=== PATIENT | male | born 1950 | race Caucasian/White ===

== ENCOUNTER 2020-12-31 09:08 | Outpatient (CLI) | payer MEDICARE, SELFPAY ==
--- NOTE | 2021-01-23 10:24 | WPDHOMESLEEP ---
Sleep Study - Home Unattended Date of Study: 12/31/20 Ordering Provider: Iglesia Gooden MD Interpreting Provider: Sabina Bautista MD Home Sleep Study Type: Apnea Link Air Height: 1.68 m Weight: 99.79 kg Body Mass Index: 35.5 Neck Circumference (inches): 16 [place]: 2 Reason for Sleep Study Hypersomnia Sleep History Ambrosio Watson is a 70-year-old man who has difficulty falling asleep most nights. He thinks about things frequently during the night. This has been going on for several years. He does not awaken from sleep feeling short of breath. He rarely awakens at night with heartburn belching or coughing. He rarely snores. He does not snore loudly enough that others complain about it. He frequently has trouble sleep with a cold. He does not wake up gasping for breath at night. He does not have breathing problems at night observed by others. He rarely sweats excessively night. He does not notice his heart pounding or beating irregularly night. He frequently falls asleep during the day, takes 1 or 2 naps. He does not fall asleep involuntarily or while driving the car. He does not have loss of muscle tone was strong emotion. He does not have daytime difficulties due to excessive sleepiness. He does not feel paralyzed on waking or falling asleep. He rarely has vivid dreamlike scenes upon awakening or falling asleep. He does not feel afraid to go to sleep. He rarely has nightmares, rarely remembers his dreams. He constantly has racing thoughts. He rarely feels sad or depressed. He frequently has anxiety. He does not have muscular tension or notices parts of his body jerking. He frequently kicks at night. He does not have crawling and aching feelings in his legs. He occasionally has leg cramps at night. He does not have morning jaw pain. He constantly is bothered by pain during the day and occasionally is awakened by pain at night. He wakes up with cramps and he frequently wakes up with neck and spine pain. He has bowel disturbances and memory problems. He has insomnia is. He occasionally uses marijuana. Normal bedtime is 2:00 a.m. taking a while possibly 1 or 2 hours to fall asleep. He typically wakes twice at night to urinate and is able to return to sleep quickly. He wakes the morning at 8:30 a.m.. His weekend schedule is the same. He estimates getting 4-5 hours of sleep overnight. He does take naps during the day. A short nap may be refreshing. Most of the time he feels good in the morning. He feels better in the evening compared to the morning. Habits: No tobacco. He does use marijuana. Caffeine 2 or 3 sodas per week. No alcohol. [facility] Past Medical History Medical History Bilateral carpal tunnel syndrome BMI 39.0-39.9,adult Chronic kidney disease (CKD) stage G3a/A1, moderately decreased glomerular filtration rate (GFR) between 45-59 mL/min/1.73 square meter and albuminuria creatinine ratio less than 30 mg/g Chronic right shoulder pain Hypersomnia Hypothyroidism, unspecified (10/15/20) TSH 5.27 on 10/15/2020 Nocturia Personal history of tobacco use 2 packs daily for 30 years with patient quitting in 1989 Ulnar neuropathy at elbow of right upper extremity Umbilical hernia without obstruction and without gangrene Family History Family History Grandparent Cerebrovascular accident, Onset Age: 81 Family history of malignant neoplasm of bone, Onset Age: 70 Mother Carcinoma of colon, Onset Age: 69 Father Family history of lung cancer, Onset Age: 9 Family history of primary malignant neoplasm of liver, Onset Age: 9 Sibling Family history of malignant neoplasm of brain, Onset Age: 54 Family history of malignant neoplasm of breast in first degree relative, Onset Age: 54 Social History Social History (Updated 01/23/21 @ 10:27 by Emili
[2021-01-23 10:31] VITALS: BMI 35.5
== END 2021-01-01 09:54 | disposition home or self-care (01) ==
LOC: ANHCSM 09:11
PROVIDERS: PCP Family Medicine; Visit Provider Family Medicine
DX: G47.33 Obstructive sleep apnea (adult) (pediatric) (principal); G47.10 Hypersomnia, unspecified; R06.3 Periodic breathing; I10 Essential (primary) hypertension
CPT/HCPCS: 95806

== ENCOUNTER → 2021-01-30 16:43 | Outpatient (CLI) | payer MEDICARE, SELFPAY ==
--- NOTE | ~2021-01-30 | XR_ITS ---
EXAMINATION: XR foot LT min 3V EXAM DATE: 01/30/2021 17:11 INDICATION: Pain in left toe(s)/no trauma/pain over a year worsening. TECHNIQUE: Left foot dorsoplantar, lateral and oblique projections obtained and reviewed. There is n o prior study for comparison. FINDINGS: Left metatarsal bones unremarkable. There are no bony erosions identified. The joint spa evelio are uniform. There are no acute fractures or dislocations identified. There is no subcutaneous g as. The soft tissue is unremarkable. There are no radiopaque foreign bodies. IMPRESSION: No acute osseous findings. Reviewed, dictated and finalized at location G. IMPRESSION: No acute osseous findings.
--- NOTE | ~2021-01-30 | XR_ITS ---
EXAMINATION: XR knee LT min 4V EXAM DATE: 01/30/2021 17:09 INDICATION: Pain in left knee/pain unspecified area/no trauma. TECHNIQUE: Left knee lateral, frontal AP, frontal PA tunnel, sunrise projections. There is no prior study for comparison. FINDINGS: No evidence osteochondral defect or joint body in the left knee joint. There are no acute fractures or dislocations identified. There is no subcutaneous gas. There may be some nonspecific anterior soft tissue swelling, anterior to the patellar tendon. Prepatellar bursitis can have this ap pearance. There are no radiopaque foreign bodies. No bony productive changes or joint effusion. IMPRESSION: Left anterior swelling, possible bursitis. Reviewed, dictated and finalized at location G.
== END ==
PROVIDERS: PCP Family Medicine; Visit Provider Family Medicine
DX: M25.572 Pain in left ankle and joints of left foot (principal); M25.562 Pain in left knee
CPT/HCPCS: 73564; 73630

== ENCOUNTER 2021-02-28 00:28 | Day surgery (SDC) | payer MEDICARE, SELFPAY ==
[2021-02-14 15:36] VITALS: BMI 35.2
[2021-02-28 10:11] VITALS: BP 150/64; PULSE 73; RESP 18; TEMP 35.8; O2SAT 99; BMI 34.6
[2021-02-28] MEDS: LACTATED RINGERS 1,000 ML 150 ML IV CONT (10:31)
[2021-02-28 10:32] LABS: Glucose Point of Care 180 mg/dl (65-105)
--- NOTE | 2021-02-28 10:48 | PM.HPGS ---
History of Present Illness History of Present Illness Consent: Risks, benefits, and alternatives have been discussed and questions answered. Patient agrees to proceed with procedure. Chief complaint: hx of colon polyps Narrative: Ambrosio Bhagat is a 70 year old male here for colon cancer screening. He has had polyps removed in the past Review of Systems Review of Systems: All systems reviewed & are unremarkable except as noted in HPI and below PMFSH Past Medical History Medical History Bilateral carpal tunnel syndrome BMI 34.0-34.9,adult BMI 39.0-39.9,adult Chronic kidney disease (CKD) stage G3a/A1, moderately decreased glomerular filtration rate (GFR) between 45-59 mL/min/1.73 square meter and albuminuria creatinine ratio less than 30 mg/g Chronic pain of left knee Chronic right shoulder pain Chronic toe pain, left foot Hemoglobin A1c greater than 8.0 percent 10/15/20 = 8.5 Hypersomnia Hypothyroidism, unspecified (10/15/20) TSH 5.27 on 10/15/2020 Nocturia Personal history of tobacco use 2 packs daily for 30 years with patient quitting in 1989 Ulnar neuropathy at elbow of right upper extremity Umbilical hernia without obstruction and without gangrene Family History Family History Grandparent Cerebrovascular accident, Onset Age: 81 Family history of malignant neoplasm of bone, Onset Age: 70 Mother Carcinoma of colon, Onset Age: 69 Father Family history of lung cancer, Onset Age: 9 Family history of primary malignant neoplasm of liver, Onset Age: 9 Sibling Family history of malignant neoplasm of brain, Onset Age: 54 Family history of malignant neoplasm of breast in first degree relative, Onset Age: 54 Social History Social History Smoking packs per day: 2 Smoking cigarettes per day: 40.0 Years smoked: 20 Smoking pack-years: 40.00 Smoking status: Former smoker Tobacco type: cigarettes Alcohol intake: never Substance use: current Substance use type: marijuana Other substance usage details: SMOKES SMALL AMOUNT DAILY Living arrangements: with family Gender identity (if verbalized by the patient): Male Spiritual care concerns: No Meds Home Medications and Allergies Home Medications Medication Instructions Recorded Confirmed Type amlodipine 10 mg tablet 10 mg PO DAILY #90 tablet 10/30/20 02/28/21 Rx atorvastatin 40 mg tablet 40 mg PO DAILY #90 tablet 10/30/20 02/28/21 Rx blood sugar diagnostic #400 ea 10/30/20 02/28/21 Rx carvedilol 25 mg tablet 25 mg PO Q12H #180 tablet 10/30/20 02/28/21 Rx empagliflozin 25 mg tablet 25 mg PO DAILY #90 tablet 10/30/20 02/28/21 Rx finasteride 5 mg tablet 5 mg PO DAILY #90 tablet 10/30/20 02/28/21 Rx hydrochlorothiazide 12.5 mg tablet 12.5 mg PO DAILY #90 tablet 10/30/20 02/28/21 Rx insulin syringe-needle U-100 1 mL #100 ea 10/30/20 02/28/21 Rx 30 gauge x 1/2 lancets 33 gauge #400 ea 10/30/20 02/28/21 Rx lisinopril 40 mg tablet 40 mg PO BID #180 tablet 10/30/20 02/28/21 Rx metformin 500 mg tablet,extended 2,000 mg PO DAILY #360 tablet 10/30/20 02/28/21 Rx release 24hr pantoprazole 40 mg tablet,delayed 40 mg PO QAM #90 tablet 10/30/20 02/28/21 Rx release pen needle, diabetic 31 gauge x See Rx Instructions .ROUTE 10/30/20 02/28/21 Rx 5/16 .COMPLEX #400 ea tamsulosin 0.4 mg capsule 0.4 mg PO DAILY #90 cap 10/30/20 02/28/21 Rx insulin glargine 100 unit/mL 80 unit SUB-Q DAILY #90 ml 01/30/21 02/28/21 Rx subcutaneous solution insulin lispro 200 unit/mL (3 mL) See Rx Instructions .ROUTE 01/30/21 02/28/21 Rx subcutaneous pen .COMPLEX #45 ml meloxicam 15 mg tablet 15 mg PO DAILY PRN #90 tablet 01/30/21 02/28/21 Rx Allergies Allergy/AdvReac Type Severity Reaction Status Date / Time Penicillins Allergy Severe Swelling Verified
--- NOTE | 2021-02-28 10:57 | WPDANESEPPF ---
Anes - Initial Pre Proc Eval Procedure: Operation Date: 02/28/21 11:30 Proposed Procedures p Screening Colonoscopy - Heath Zepeda MD Date/Time: 02/28/21 10:57 Surgeon: Heath Zepeda MD Pre Op Diagnosis: hx of colon polyps Patient Data Age: 70 Gender: M Height: 1.65 m Weight: 94.4 kg Last Vital Signs Temp 96.5 F L 02/28/21 10:11 Pulse 73 02/28/21 10:11 Resp 18 02/28/21 10:11 BP 150/64 H 02/28/21 10:11 Pulse Ox 99 02/28/21 10:11 Allergies Allergy/AdvReac Type Severity Reaction Status Date / Time Penicillins Allergy Severe Swelling Verified 02/28/21 10:10 of Lip/Tongue/Throat Home Medications Medication Instructions Recorded Confirmed Type amlodipine 10 mg tablet 10 mg PO DAILY #90 tablet 10/30/20 02/28/21 Rx atorvastatin 40 mg tablet 40 mg PO DAILY #90 tablet 10/30/20 02/28/21 Rx blood sugar diagnostic #400 ea 10/30/20 02/28/21 Rx carvedilol 25 mg tablet 25 mg PO Q12H #180 tablet 10/30/20 02/28/21 Rx empagliflozin 25 mg tablet 25 mg PO DAILY #90 tablet 10/30/20 02/28/21 Rx finasteride 5 mg tablet 5 mg PO DAILY #90 tablet 10/30/20 02/28/21 Rx hydrochlorothiazide 12.5 mg tablet 12.5 mg PO DAILY #90 tablet 10/30/20 02/28/21 Rx insulin syringe-needle U-100 1 mL #100 ea 10/30/20 02/28/21 Rx 30 gauge x 1/2 lancets 33 gauge #400 ea 10/30/20 02/28/21 Rx lisinopril 40 mg tablet 40 mg PO BID #180 tablet 10/30/20 02/28/21 Rx metformin 500 mg tablet,extended 2,000 mg PO DAILY #360 tablet 10/30/20 02/28/21 Rx release 24hr pantoprazole 40 mg tablet,delayed 40 mg PO QAM #90 tablet 10/30/20 02/28/21 Rx release pen needle, diabetic 31 gauge x See Rx Instructions .ROUTE 10/30/20 02/28/21 Rx 5/16 .COMPLEX #400 ea tamsulosin 0.4 mg capsule 0.4 mg PO DAILY #90 cap 10/30/20 02/28/21 Rx insulin glargine 100 unit/mL 80 unit SUB-Q DAILY #90 ml 01/30/21 02/28/21 Rx subcutaneous solution insulin lispro 200 unit/mL (3 mL) See Rx Instructions .ROUTE 01/30/21 02/28/21 Rx subcutaneous pen .COMPLEX #45 ml meloxicam 15 mg tablet 15 mg PO DAILY PRN #90 tablet 01/30/21 02/28/21 Rx Laboratory Tests 02/28/21 10:29 POC Capillary Glucose 180 mg/dl H mg/dl (65-105) Patient hx anesthesia problems: none Family hx anesthesia problems: none PMFSH Past Medical History Medical History Bilateral carpal tunnel syndrome BMI 34.0-34.9,adult BMI 39.0-39.9,adult Chronic kidney disease (CKD) stage G3a/A1, moderately decreased glomerular filtration rate (GFR) between 45-59 mL/min/1.73 square meter and albuminuria creatinine ratio less than 30 mg/g Chronic pain of left knee Chronic right shoulder pain Chronic toe pain, left foot Hemoglobin A1c greater than 8.0 percent 10/15/20 = 8.5 Hypersomnia Hypothyroidism, unspecified (10/15/20) TSH 5.27 on 10/15/2020 Nocturia Personal history of tobacco use 2 packs daily for 30 years with patient quitting in 1989 Ulnar neuropathy at elbow of right upper extremity Umbilical hernia without obstruction and without gangrene Family History Family History Grandparent Cerebrovascular accident, Onset Age: 81 Family history of malignant neoplasm of bone, Onset Age: 70 Mother Carcinoma of colon, Onset Age: 69 Father Family history of lung cancer, Onset Age: 9 Family history of primary malignant neoplasm of liver, Onset Age: 9 Sibling Family history of malignant neoplasm of brain, Onset Age: 54 Family history of malignant neoplasm of breast in first degree relative, Onset Age: 54 Social History Social History Smoking packs per day: 2 Smoking cigarettes per day: 40.0 Years smoked: 20 Smoking pack-years: 40.00 Smoking status: Former smoker Tobacco type: cigarettes Alcohol intake: never Substance use: current Substance u
[2021-02-28] MEDS: SIMETHICONE ORAL SUSPENSION 20 MG/0.3 ML 30 ML BOTTLE 0.6 ML IRRIGATION (11:33)
[2021-02-28 11:45] VITALS: BP 93/45; PULSE 65; RESP 25; O2SAT 97
[2021-02-28 11:55] VITALS: BP 116/68; PULSE 70; RESP 14; O2SAT 99
[2021-02-28 11:57] LABS: Glucose Point of Care 133 mg/dl (65-105)
[2021-02-28 12:05] VITALS: BP 126/67; PULSE 65; RESP 16; O2SAT 97
== END 2021-02-28 12:18 | disposition home or self-care (01) ==
PROVIDERS: PCP Family Medicine; Visit Provider Internal Medicine Gastroenterology
PROC: 0DJD8ZZ Inspection of Lower Intestinal Tract, Via Natural or Artificial Opening Endoscopic (ICD-10-PCS; CPT 45378; principal; 2021-02-28 11:30)
DX: Z12.11 Encounter for screening for malignant neoplasm of colon (principal); D12.2 Benign neoplasm of ascending colon; D12.4 Benign neoplasm of descending colon; K62.1 Rectal polyp; K57.30 Diverticulosis of large intestine without perforation or abscess without bleeding; I12.9 Hypertensive chronic kidney disease with stage 1 through stage 4 chronic kidney disease, or unspecified chronic kidney disease; N18.31 Chronic kidney disease, stage 3a; E03.9 Hypothyroidism, unspecified; J45.909 Unspecified asthma, uncomplicated; K21.9 Gastro-esophageal reflux disease without esophagitis; E66.9 Obesity, unspecified; Z68.34 Body mass index [BMI] 34.0-34.9, adult; Z79.4 Long term (current) use of insulin; Z88.0 Allergy status to penicillin; Z87.891 Personal history of nicotine dependence
CPT/HCPCS: 45380; 45385; 82948; 88305; J2704; J7120

== ENCOUNTER 2021-04-08 08:30 | Emergency (ER) | payer MEDICARE, SELFPAY ==
[2021-04-08 08:36] VITALS: BP 145/70; PULSE 85; RESP 20; TEMP 36.6; O2SAT 100
--- NOTE | 2021-04-08 09:30 | ED.EYEPROB ---
HPI - Eye Problem General Chief complaint: Eye Problems Stated complaint: Eye complaint Time Seen by Provider: 04/08/21 09:15 Source: patient and RN notes reviewed Mode of arrival: ambulatory Limitations: no limitations History of Present Illness HPI Narrative: Patient presents today complaining of a bubble to the right eye x2 days. Denies itching or pain. Denies vision changes, photophobia. Reports increased watering. Believes he has poison satinder in his eye as a large area of poison satinder was found and removed near his home recently. He has used some visine to wash dirt from his eye. Related Data Home Medications Medication Instructions Recorded Confirmed empagliflozin [Jardiance] 10 mg PO DAILY 04/08/21 04/08/21 Allergies Allergy/AdvReac Type Severity Reaction Status Date / Time Penicillins Allergy Severe Swelling Verified 04/08/21 08:36 of Lip/Tongue/Throat Review of Systems Review of Systems: CONSTITUTIONAL: Denies body aches, fever, chills, or sweats. EYES: Denies visual changes, redness, or discharge.+bubble to right eye ENT: Denies rhinorrhea, congestion, sore throat, or otalgia. CARDIOVASCULAR: Denies chest pain, palpitations, or edema. RESPIRATORY: Denies cough or dyspnea. GASTROINTESTINAL: Denies abdominal pain, nausea, vomiting, or diarrhea. GENITOURINARY: Denies dysuria or hematuria. SKIN: Denies rash, itching, or wounds. MUSCULOSKELETAL: Denies back pain, joint pain, or myalgia. NEUROLOGIC: Denies headache, numbness, tingling, or weakness. PSYCH: Denies depression or anxiety. [facility] Past Medical History Medical History Adult BMI 35.0-35.9 kg/sq m Bilateral carpal tunnel syndrome BMI 34.0-34.9,adult BMI 39.0-39.9,adult Chronic kidney disease (CKD) stage G3a/A1, moderately decreased glomerular filtration rate (GFR) between 45-59 mL/min/1.73 square meter and albuminuria creatinine ratio less than 30 mg/g Chronic pain of left knee Chronic right shoulder pain Chronic toe pain, left foot Hemoglobin A1c greater than 8.0 percent 10/15/20 = 8.5 Hypersomnia Hypothyroidism, unspecified (10/15/20) TSH 5.27 on 10/15/2020 Nocturia Personal history of tobacco use 2 packs daily for 30 years with patient quitting in 1989 Ulnar neuropathy at elbow of right upper extremity Umbilical hernia without obstruction and without gangrene Family History Family History Grandparent Cerebrovascular accident, Onset Age: 81 Family history of malignant neoplasm of bone, Onset Age: 70 Mother Carcinoma of colon, Onset Age: 69 Father Family history of lung cancer, Onset Age: 9 Family history of primary malignant neoplasm of liver, Onset Age: 9 Sibling Family history of malignant neoplasm of brain, Onset Age: 54 Family history of malignant neoplasm of breast in first degree relative, Onset Age: 54 Social History Social History Smoking packs per day: 2 Smoking cigarettes per day: 40.0 Years smoked: 20 Smoking pack-years: 40.00 Smoking status: Former smoker Tobacco type: cigarettes Alcohol intake: never Substance use: current Substance use type: marijuana Other substance usage details: SMOKES SMALL AMOUNT DAILY Gender identity (if verbalized by the patient): Male Spiritual care concerns: No Comments At time of signature, I have reviewed and agree with nursing past medical, surgical, social and family history unless otherwise noted. Please see nursing chart for further information. There is no relevant family history pertinent to the presenting complaint Exam Narrative: GENERAL: Well-appearing, well-nourished, and in no acute distress. HEAD: Normocephalic, atraumatic. EYES: EOMI. PERRL. No redness or drainage. Lower conjunctivae slightly swollen bilaterall
== END 2021-04-08 09:45 | disposition home or self-care (01) ==
PROVIDERS: Emergency Provider Nurse Practitioner; PCP Family Medicine
DX: H57.9 Unspecified disorder of eye and adnexa (principal); N18.31 Chronic kidney disease, stage 3a; E03.9 Hypothyroidism, unspecified; Z87.891 Personal history of nicotine dependence
CPT/HCPCS: 99212; G0463

== ENCOUNTER 2023-12-30 15:44 | Emergency (ER) | payer MEDICARE, SELFPAY ==
--- NOTE | ~2023-12-30 | CT_ITS ---
EXAMINATION: CT lumbar spine wo con DATE: 12/30/2023 18:10 INDICATION: Sciatica TECHNIQUE: Computed tomography (CT) of the lumbar spine was performed without intravenous contrast. A utomated exposure control and iterative reconstruction technique were employed. The dose-length produ ct was 1300.44 mGy-cm. COMPARISON: None FINDINGS: Alignment is normal. Chronic appearing minimal anterior wedging at T11 and T12. Lumbar vertebral body heights are normal. There are Schmorl's nodes at both sides of the moderate to severely narrowed L2- L3 and L3-L4 disc spaces. Additional mild disc height loss at L4-L5 and L5-S1 and at T10-T11. Paraver tebral soft tissues are unremarkable. Mild bilateral sacroiliac osteoarthritis. T11-T12: There is mild bilateral facet joint osteoarthritis. There is no neural foraminal stenosis. T here is mild central canal stenosis. T12-L1: There is mild bilateral facet joint osteoarthritis. There is no neural foraminal stenosis. Th ere is no central canal stenosis. L1-L2: There is mild to moderate bilateral facet joint osteoarthritis. There is no neural foraminal s tenosis. There is no central canal stenosis. L2-L3: Disc is bulging. There is mild right and moderate left facet joint osteoarthritis. There is mo derate bilateral neural foraminal stenosis. There is mild central canal stenosis. L3-L4: Disc is bulging. There is mild to moderate bilateral facet joint osteoarthritis. There is mode rate bilateral neural foraminal stenosis. There is mild central canal stenosis. L4-L5: Disc is bulging. There is moderate right and moderate to severe left facet joint osteoarthriti s. There is moderate bilateral neural foraminal stenosis. There is mild central canal stenosis. L5-S1: Disc is bulging. There is moderate to severe bilateral facet joint osteoarthritis. There is mi ld left and moderate right neural foraminal stenosis. There is mild central canal stenosis. IMPRESSION: 1. Moderate to severe lumbar spondylosis. No acute osseous abnormality. Reviewed, dictated and finalized at location A.
--- NOTE | ~2023-12-30 | XR_ITS ---
EXAMINATION: XR hip LT 2V w AP pelvis DATE: 12/30/2023 18:05 INDICATION: Left hip pain. Piriformis syndrome. TECHNIQUE: Anteroposterior view of the pelvis and anteroposterior and frog-leg lateral views of the l eft hip were obtained. COMPARISON: None. FINDINGS: Alignment is normal. No fracture or suspected osteonecrosis. Bilateral hip and sacroiliac joint space s are relatively preserved. Small heterotopic ossicles along the subtrochanteric left femur, along th e superolateral rim of the left acetabulum and at the left and right ischial tuberosities. Soft tissu es are unremarkable. IMPRESSION: 1. No acute osseous abnormality. Reviewed, dictated and finalized at location A.
--- NOTE | ~2023-12-30 | XR_ITS ---
EXAMINATION: XR chest 1V DATE: 12/30/2023 18:05 INDICATION: Cough TECHNIQUE: PA view of the chest was obtained. COMPARISON: None FINDINGS: There are few bilateral scattered calcified pulmonary nodules along with calcified bilateral hilar an d mediastinal lymph nodes consistent with old granulomatous disease. Mild bilateral perihilar bronchi al wall thickening which could be seen with bronchitis or mild pulmonary edema. No focal airspace con solidation to suggest pneumonia. No pleural effusion or pneumothorax. The cardiomediastinal silhouett e is normal. Moderate thoracic spondylosis. IMPRESSION: 1. Bilateral mild perihilar bronchial wall thickening which could be seen with bronchitis or mild pul monary edema without focal airspace consolidation to suggest pneumonia. Reviewed, dictated and finalized at location A. IMPRESSION: 1. Bilateral mild perihilar bronchial wall thickening which could be seen with bronchitis or mild pulmonary edema without focal airspace consolidation to sugg est pneumonia.
[2023-12-30 15:48] VITALS: BP 135/81; PULSE 88; RESP 20; TEMP 37.2; O2SAT 99
--- NOTE | 2023-12-30 17:52 | ED.GENADULT ---
HPI - General Adult General Chief complaint: Unspecified Stated complaint: left leg pain, urinary urgency, decreased appetite Time Seen by Provider: 12/30/23 17:15 History of Present Illness HPI narrative: 73-year-old male with a history of chronic pain, CHARLEY, insulin-dependent type 2 diabetes, GERD, CKD presents to the emergency department with multiple medical complaints. Patient states 2 days ago he began developing left hip pain that radiates down his left leg. States the pain originates in the posterior left hip and points laterally down his leg to his ankle. States it does not touch his foot. He denies saddle anesthesia, urinary incontinence or retention, bowel retention, injury or trauma to his back. He is also reporting urinary frequency and urgency which he states is new in the past 2 days as well. Denies abdominal pain or flank pain, nausea or vomiting. States he told his PCP this and was advised to come to the ED for further evaluation and concerns for UTI. He has also states in the past 2 days he has not been eating well because food tastes like dirt and rocks. He denies odynophagia or dysphagia, chest pain or shortness of breath. He states the food simply does not taste good. States he has been able to hydrate well with water but has not been able to drink his normal sweet tea. Related Data Home Medications Medication Instructions Recorded Confirmed cyanocobalamin (vitamin B-12) 1,000 mcg PO DAILY 04/07/22 11/17/23 1,000 mcg tablet cholecalciferol (vitamin D3) 50 2,000 unit PO DAILY 11/17/23 11/17/23 mcg (2,000 unit) tablet Allergies Allergy/AdvReac Type Severity Reaction Status Date / Time Penicillins Allergy Severe Swelling Verified 04/08/21 08:36 of Lip/Tongue/Throat Review of Systems Review of Systems: CONSTITUTIONAL: Denies chills, or sweats. EYES: Denies visual changes, redness, or discharge. ENT: Denies rhinorrhea, congestion, sore throat, or otalgia. CARDIOVASCULAR: Denies chest pain, palpitations, or edema. RESPIRATORY: Denies cough or dyspnea. GASTROINTESTINAL: Denies abdominal pain, nausea, vomiting, or diarrhea. GENITOURINARY: see HPI SKIN: Denies rash or itching. MUSCULOSKELETAL: see HPI NEUROLOGIC: see HPI PSYCHIATRIC: Denies anxiety or depression. PMFSH Past Medical History Medical History (Updated 12/30/23 @ 20:13 by Lawanda Willis PA-C) Adult BMI 35.0-35.9 kg/sq m At low risk for fall Bilateral carpal tunnel syndrome BMI 34.0-34.9,adult BMI 39.0-39.9,adult Chronic kidney disease (CKD) stage G3a/A1, moderately decreased glomerular filtration rate (GFR) between 45-59 mL/min/1.73 square meter and albuminuria creatinine ratio less than 30 mg/g BUN 20, creatinine 1.3, GFR 56 on 08/28/2021. BUN 23, creatinine 1.32 with GFR 58 on 03/25/2022. BUN 21, creatinine 1.23 with GFR 64 on 09/30/2022. BUN 22, creatinine 1.37 with GFR 55 on 05/05/2023. BUN 24, creatinine 1.31, GFR 59 on 11/03/2023. Chronic low back pain with right-sided sciatica (~2022) Chronic pain of left knee Chronic right shoulder pain Chronic toe pain, left foot Colon cancer screening Eczema Encounter for prostate cancer screening PSA 0.6 on 03/25/2022. PSA 0.48 on 05/05/2023. Hemoglobin A1c greater than 8.0 percent 10/15/20 = 8.5 Hypersomnia Hypothyroidism, unspecified (10/15/20) TSH 5.27 on 10/15/2020. TSH 4.46 on 03/25/2022. TSH 4.38 on 11/03/2023. Microalbuminuric diabetic nephropathy microalbumin ratio 69 on 08/28/2021. Microalbumin ratio 214 on 09/30/2022.Microalbumin ratio of 177 on 11/03/2023. Nocturia PSA 0.6 on 03/25/2022. Obesity (BMI 30-39.9) Personal history of tobacco use 2 packs daily for 30 years with patient quitting in 1989 Screening for diabetic retinopathy (04/09/21) no diabetic retinopathy on 04/09/2021. no retinopathy or macular degeneration on 06/27/2021. Ulnar neuropathy at elbow of right upper extremity Umbilical hernia without obstruction and without gangrene
[2023-12-30] MEDS: LIDOCAINE 5% PATCH 1 PATCH TRANSDERM (18:19)
[2023-12-30] MEDS: CYCLOBENZAPRINE HCL 10 MG TABLET PO (18:19)
[2023-12-30] MEDS: ACETAMINOPHEN 500 MG TABLET 1000 MG PO (18:19)
[2023-12-30 18:33] VITALS: BP 132/80; PULSE 81; RESP 16; O2SAT 97
[2023-12-30 18:45] LABS: Basophils Percent Auto 0.3 % (0.2-1.2); Eosinophils Percent Auto 0.1 % (0-4.4); Hematocrit 42.5 % (42.0-52.0); Hemoglobin 13.7 g/dL (14.0-18.0); Immature Granulocyte Absolute 0.02 K/mm3 (0.00-0.031); Immature Granulocyte Percent A 0.3 % (0-0.5); Lymphocytes Absolute Auto 0.49 K/mm3 (0.9-3.2); Lymphocytes Percent Auto 6.6 % (18.3-44.2); Mean Corpuscular HGB Conc 32.2 g/dl (32-36); Mean Corpuscular Hemoglobin 27.5 pg (26-34); Mean Corpuscular Volume 85.2 fl (80-100); Mean Platelet Volume 10.3 fl (7.4-10.4); Monocytes Absolute Auto 1.1 K/mm3 (0.1-0.6); Monocytes Percent Auto 15.3 % (2.6-8.5); Neutrophils Absolute Auto 5.7 K/mm3 (1.3-6.7); Neutrophils Percent Auto 77.4 % (45.5-73.1); Nucleated Red Blood Cells Perc 0.3 % (0.0-0.2); Platelet Count Result 145 k/mm3 (150-375); Red Blood Count 4.99 M/mm3 (4.6-6.20); Red Cell Distribution Width 14.5 % (11.5-14.5); White Blood Count 7.4 K/mm3 (4.5-10.0)
[2023-12-30 18:57] LABS: Alanine Aminotransferase 47 U/L (6-50); Albumin Level 3.9 g/dL (3.5-5.1); Alkaline Phosphatase 95 U/L (38-126); Anion Gap 10 mmol/L (4-12); Aspartate Amino Transferase 51 U/L (17-59); Bilirubin,Total 1.2 mg/dL (0.2-1.3); Blood Urea Nitrogen 31 mg/dL (9-20); Calcium 8.9 mg/dL (8.4-10.2); Carbon Dioxide 25 mmol/L (22-30); Chloride 101 mmol/L (98-107); Estimated CRCL calculation 44 ml/min; Estimated Glomerular Filt Rate 46; Glucose 191 mg/dL (65-110); Potassium 3.7 mmol/L (3.4-5.0); Sodium 136 mmol/L (137-145)
[2023-12-30 18:59] LABS: Add Urine Microscopic? YES; Appearance Urine Clear (Clear); Bacteria Urine None Seen /hpf; Bilirubin Urine Negative (Negative); Blood Urine 2+ (Negative); Color Urine Yellow (Yellow); Glucose Urine UA 3+ mg/dL (Negative); Ketones Urine 1+ mg/dL (Negative); Leukocyte Esterase Ur Negative LEU/UL (Negative); Nitrate Urine Negative (Negative); Protein Urine 1+ mg/dL (Negative); RBC Urine 0-2 /hpf (0-2); Specific Grav Ur 1.028 (1.001-1.035); Squamous Epithelial Cell Urine None Seen /hpf (Few); Urobilinogen Urine 0.2 mg/dL (<2.0); WBC Urine 0-5 /hpf (0-3)
[2023-12-30 19:14] VITALS: BP 130/65; PULSE 70; RESP 16; O2SAT 98
[2023-12-30 19:19] LABS: Influenza A QL RT-PCR Negative (Negative); Influenza B QL RT-PCR Negative (Negative); RSV RNA, RT-PCR Negative (Negative); SARS-CoV-2 RNA PCR Negative (Negative)
[2023-12-30] MEDS: SODIUM CHLORIDE 0.9% IV 1,000 ML 999 ML IV CONT (19:23)
[2023-12-30] MEDS: dexAMETHasone SOD PHOS INJ 10 MG/ML 1 ML VIAL IV PUSH (20:14)
== END 2023-12-30 20:30 | disposition home or self-care (01) ==
PROVIDERS: Emergency Provider Physician Assistant; PCP Family Medicine
DX: G57.02 Lesion of sciatic nerve, left lower limb (principal); R35.0 Frequency of micturition; Z20.822 Contact with and (suspected) exposure to COVID-19; E11.22 Type 2 diabetes mellitus with diabetic chronic kidney disease; N18.31 Chronic kidney disease, stage 3a; E03.9 Hypothyroidism, unspecified; E11.21 Type 2 diabetes mellitus with diabetic nephropathy; E66.9 Obesity, unspecified; Z68.34 Body mass index [BMI] 34.0-34.9, adult; G47.33 Obstructive sleep apnea (adult) (pediatric); K21.9 Gastro-esophageal reflux disease without esophagitis; Z87.891 Personal history of nicotine dependence; Z79.899 Other long term (current) drug therapy; Z79.84 Long term (current) use of oral hypoglycemic drugs; Z79.4 Long term (current) use of insulin; M47.816 Spondylosis without myelopathy or radiculopathy, lumbar region
CPT/HCPCS: 36415; 71045; 72131; 73502; 80053; 81001; 85025; 85055; 87637; 96374; 99284; A9270; J1100; J7030

== ENCOUNTER 2024-01-06 18:05 | Emergency (ER) | payer MEDICARE, SELFPAY ==
[2024-01-06] VITALS (39 sets, daily range): BP systolic 126–158; BP diastolic 48–82; PULSE 82–94; RESP 16–32; TEMP 37.1; O2SAT 92–100
--- NOTE | ~2024-01-06 | CT_ITS ---
EXAMINATION: CT abdomen pelvis w con DATE: 01/06/2024 20:10 INDICATION: RUQ pain, abnml lfts, diarrhea, fevers TECHNIQUE: Computed tomography (CT) of the abdomen and pelvis was performed with 100 mL Omnipaque-350 intravenous contrast. Automated exposure control and iterative reconstruction technique were employe d. The dose-length product was 1312.05 mGy-cm. COMPARISON: None. FINDINGS: Lower thorax: Granulomatous calcifications. 10 mm pulmonary nodule in the medial lingula. Liver: Intrahepatic portal venous thrombi within multiple branches in the right lobe. . Scattered gra nulomas calcifications. No suspicious liver mass. Biliary/Gallbladder: Gallbladder is normal. No bile duct dilation. Pancreas: No mass or duct dilation. Spleen: Normal. Adrenals:No mass. Kidneys: No suspicious mass, obstructing stone, or hydronephrosis. Simple left upper pole cyst. Bilat eral hypodensities, too small to characterize but most likely represent cysts. GI tract: No small or large bowel dilation. Normal appendix. Diverticulosis without diverticulitis. Mesentery/Peritoneum: Thrombus in multiple branches of the inferior mesenteric vein, with surrounding inflammatory change extending proximally to its junction with the otherwise patent splenic vein. No ascites, mass, or free air. Retroperitoneum: No mass. Pelvis: Normal urinary bladder. Enlarged prostate. Soft Tissues: Moderate, uncomplicated appearing fat-containing umbilical hernia.. Bones: No acute osseous finding. IMPRESSION: 10 mm pulmonary nodule in the medial lingula, recommend comparison to outside studies. If not availab le, recommend 3 month follow-up CT, PET/CT, or tissue sampling. Portal vein thrombosis involving multiple intrahepatic portal branch veins in the right liver lobe. Acute appearing inferior mesenteric vein thrombosis. Reviewed, dictated and finalized at location K. IMPRESSION: 10 mm pulmonary nodule in the medial lingula, recommend comparison to outside s tudies. If not available, recommend 3 month follow-up CT, PET/CT, or tissue lizbeth pling. Portal vein thrombosis involving multiple intrahepatic portal branch veins in t he right liver lobe. Acute appearing inferior mesenteric vein thrombosis.
--- NOTE | ~2024-01-06 | CT_ITS ---
EXAMINATION: CT brain wo con DATE: 01/06/2024 20:06 INDICATION: confusion . TECHNIQUE: Computed tomography (CT) of the head was performed without intravenous contrast. The mA wa s adjusted according to patient size. Iterative reconstruction technique was employed. The dose-lengt h product was 605.33 mGy-cm. COMPARISON: None. FINDINGS: No acute intracranial hemorrhage or extra-axial fluid collection. No hydrocephalus, mass, or herniation. No acute ischemic infarct. Unremarkable dural venous sinus attenuation. No acute osseous abnormality. The aerated spaces are clear. Mild atrophy and chronic white matter change. Atherosclerotic intracranial calcification. IMPRESSION: No acute intracranial process. Reviewed, dictated and finalized at location K.
--- NOTE | ~2024-01-06 | XR_ITS ---
EXAMINATION: XR chest 2V Exam Date/Time: 01/06/2024 19:13 CDT HISTORY: weakness Comparison: 11/29/2023. RESULT: Lines, tubes, and devices: None. Lungs and pleura: Low volumes with crowding. Granulomatous calcifications. Cardiomediastinal silhouette: Stable. Other: No acute osseous or upper abdominal finding. IMPRESSION: No acute cardiopulmonary process. Reviewed, dictated and finalized at location K.
--- NOTE | 2024-01-06 18:33 | ECG_ITS ---
Test Date: 2024-01-06 18:39:13 Measurements Intervals Douglas Rate: 85 P: 63 OK: 162 QRS: -2 QRSD: 89 T: 70 QT: 355 QTc: 423 Interpretive Statements SINUS RHYTHM NONSPECIFIC T-WAVE ABNORMALITY No previous ECG available for comparison Electronically Signed On 01-07-2024 13:33:02 CDT by Dwayne Barahona M.D.
[2024-01-06 18:55] LABS: Hematocrit 39.1 % (42.0-52.0); Hemoglobin 12.7 g/dL (14.0-18.0); Mean Corpuscular HGB Conc 32.5 g/dl (32-36); Mean Corpuscular Hemoglobin 27.6 pg (26-34); Mean Platelet Volume 9.9 fl (7.4-10.4); Platelet Count Result 195 k/mm3 (150-375); Red Cell Distribution Width 15.4 % (11.5-14.5); White Blood Count 14.4 K/mm3 (4.5-10.0)
[2024-01-06 19:07] LABS: Alanine Aminotransferase 107 U/L (6-50); Albumin Level 3.5 g/dL (3.5-5.1); Alkaline Phosphatase 261 U/L (38-126); Anion Gap 10 mmol/L (4-12); Aspartate Amino Transferase 110 U/L (17-59); Bilirubin,Total 1.4 mg/dL (0.2-1.3); Blood Urea Nitrogen 39 mg/dL (9-20); Carbon Dioxide 25 mmol/L (22-30); Chloride 100 mmol/L (98-107); Estimated CRCL calculation 46 ml/min; Estimated Glomerular Filt Rate 50; Glucose 119 mg/dL (65-110); Lactic Acid Reflex 1.3 mmol/L (0.7-2.0); Lipase 56 U/L (23-300); Magnesium 2.4 mg/dL (1.6-2.3); Potassium 3.9 mmol/L (3.4-5.0); Sodium 135 mmol/L (137-145)
[2024-01-06 19:08] LABS: Appearance Urine Clear (Clear); Bacteria Urine None Seen /hpf; Bilirubin Urine Negative (Negative); Blood Urine 2+ (Negative); Color Urine Yellow (Yellow); Glucose Urine UA 3+ mg/dL (Negative); Ketones Urine Negative (Negative); Leukocyte Esterase Ur Negative LEU/UL (Negative); Nitrate Urine Negative (Negative); Protein Urine Trace mg/dL (Negative); RBC Urine 0-2 /hpf (0-2); Specific Grav Ur 1.025 (1.001-1.035); Squamous Epithelial Cell Urine None Seen /hpf (Few); WBC Urine 0-5 /hpf (0-3)
[2024-01-06 19:14] LABS: Add Urine Microscopic? YES
[2024-01-06 19:27] LABS: Band Neutrophils Percent 4 % (0-6); Lymphocytes Absolute Manual 0.43 K/mm3 (1.1-4.5); Monocytes Absolute Manual 0.72 K/mm3 (0.1-0.90); Monocytes Percent Manual 5 % (3-9); Neutrophils Absolute Manual 13.24 K/mm3 (1.3-6.7); Neutrophils Percent Manual 88 % (46-73); Platelet Estimate Adequate (Adequate); Total Cells Counted 100
[2024-01-06 19:28] LABS: Anisocytosis 2+; Schistocytes None Seen
--- NOTE | 2024-01-06 19:36 | ED.WEAKNESS ---
HPI - Weakness General Chief complaint: Weakness Stated complaint: INSOMNIA, MULTIPLE C/O Time Seen by Provider: 01/06/24 18:33 Source: patient Mode of arrival: ambulatory Limitations: no limitations History of Present Illness HPI Narrative: Patient is a 73 y/o male who presents to the ED with multiple complaints. Patient is a poor historian. He reports having abdominal pain and bloating over the past 1.5 weeks. Reports pain is mostly throughout his lower abdomen. Patient was seen in the ED here on 12/29 for multiple complaints at that time as well. He denied having abdominal pain about time. He reports having diarrhea, urinary frequency/ urgency, intermittent fevers, difficulty sleeping, poor appetite, generalized weakness, left lower back/left sciatic type pain. On most recent ED visit, he was prescribed Flexeril and lidocaine patches and has been taking this with relief of his sciatic pain. reports patient has been slower than normal mentally lately. Related Data Home Medications Medication Instructions Recorded Confirmed cyanocobalamin (vitamin B-12) 1,000 mcg PO DAILY 04/07/22 11/17/23 1,000 mcg tablet cholecalciferol (vitamin D3) 50 2,000 unit PO DAILY 11/17/23 11/17/23 mcg (2,000 unit) tablet Allergies Allergy/AdvReac Type Severity Reaction Status Date / Time Penicillins Allergy Severe Swelling Verified 04/08/21 08:36 of Lip/Tongue/Throat Review of Systems Review of Systems: CONSTITUTIONAL: See HPI. ENT: Denies rhinorrhea, congestion, sore throat. CARDIOVASCULAR: Denies chest pain, palpitations, or edema. RESPIRATORY: Denies cough or dyspnea. GASTROINTESTINAL: see HPI. GENITOURINARY: See HPI MUSCULOSKELETAL: See HPI NEUROLOGIC: See HPI All systems reviewed & are unremarkable except as noted in HPI and below [facility] Past Medical History Medical History Adult BMI 35.0-35.9 kg/sq m At low risk for fall Bilateral carpal tunnel syndrome BMI 34.0-34.9,adult BMI 39.0-39.9,adult Chronic kidney disease (CKD) stage G3a/A1, moderately decreased glomerular filtration rate (GFR) between 45-59 mL/min/1.73 square meter and albuminuria creatinine ratio less than 30 mg/g BUN 20, creatinine 1.3, GFR 56 on 08/28/2021. BUN 23, creatinine 1.32 with GFR 58 on 03/25/2022. BUN 21, creatinine 1.23 with GFR 64 on 09/30/2022. BUN 22, creatinine 1.37 with GFR 55 on 05/05/2023. BUN 24, creatinine 1.31, GFR 59 on 11/03/2023. Chronic low back pain with right-sided sciatica (~2022) Chronic pain of left knee Chronic right shoulder pain Chronic toe pain, left foot Colon cancer screening Eczema Encounter for prostate cancer screening PSA 0.6 on 03/25/2022. PSA 0.48 on 05/05/2023. Hemoglobin A1c greater than 8.0 percent 10/15/20 = 8.5 Hypersomnia Hypothyroidism, unspecified (10/15/20) TSH 5.27 on 10/15/2020. TSH 4.46 on 03/25/2022. TSH 4.38 on 11/03/2023. Microalbuminuric diabetic nephropathy microalbumin ratio 69 on 08/28/2021. Microalbumin ratio 214 on 09/30/2022.Microalbumin ratio of 177 on 11/03/2023. Nocturia PSA 0.6 on 03/25/2022. Obesity (BMI 30-39.9) Personal history of tobacco use 2 packs daily for 30 years with patient quitting in 1989 Screening for diabetic retinopathy (04/09/21) no diabetic retinopathy on 04/09/2021. no retinopathy or macular degeneration on 06/27/2021. Ulnar neuropathy at elbow of right upper extremity Umbilical hernia without obstruction and without gangrene Family History Family History Grandparent Cerebrovascular accident, Onset Age: 81 Family history of malignant neoplasm of bone, Onset Age: 70 Mother Carcinoma of colon, Onset Age: 69 Father Family history of lung cancer, Onset Age: 9 Family history of primary malignant neoplasm of liver, Onset Age: 9 Sibling Family history of malignant neop
--- NOTE | 2024-01-06 19:50 | PC.NURSE ---
Pt to ct at this time.
--- NOTE | 2024-01-06 20:02 | PC.NURSE ---
Pt verbalized that patient had a glf out of his recliner last night. Denies blood thinners or that the pt hit his head during that fall. Pt also states that pt is slow to respond when he is asked questions, barely eating, but sleeping all the time.
[2024-01-06] MEDS: LIDOCAINE 5% PATCH 1 PATCH TRANSDERM (20:22)
[2024-01-06] MEDS: SODIUM CHLORIDE 0.9% IV 1,000 ML 999 ML IV CONT (20:27)
[2024-01-06] MEDS: ONDANSETRON INJ 4 MG/2 ML VIAL IV PUSH (20:27)
[2024-01-06] MEDS: MORPHINE SULFATE (*CRX) 4 MG/ML INJ IV PUSH (20:29)
[2024-01-06 20:55] LABS: Partial Thromboplastin Time 28.3 Seconds (22.3-36.8)
[2024-01-06] MEDS: HEPARIN SODIUM 5,000 UNITS/ML VIAL 6000 UNITS IV PUSH (21:19)
[2024-01-06] MEDS: HEPARIN SOD/D5W 100 UNITS/ML 25,000 UNITS/250 ML BAG 14 UNITS IV CONT (21:20)
--- NOTE | 2024-01-06 21:54 | PC.NURSE ---
[facility] transfer line given initial nurse report, most recent set of vitals, etc.
--- NOTE | 2024-01-06 22:04 | PC.NURSE ---
Pt accepted at [facility], nurse report [phone]. Room [id number]
[2024-01-06] MEDS: SODIUM CHLORIDE 0.9% IV 1,000 ML 100 ML IV CONT (22:09)
--- NOTE | 2024-01-06 23:08 | PC.NURSE ---
pt transferred while infusing ns @ 100ml/hr, and heparin @ 14ml/hr
[2024-01-07] VITALS: PULSE 94; RESP 26; O2SAT 94
[2024-01-07 00:02] VITALS: BP 144/59; PULSE 95; RESP 21
[2024-01-07 00:15] VITALS: PULSE 97; RESP 21
[2024-01-07 00:30] VITALS: PULSE 95; RESP 25
[2024-01-07 00:32] VITALS: BP 161/68; PULSE 95; RESP 25
--- NOTE | 2024-01-07 01:01 | PC.NURSE ---
report given to [facility]. pt placed on their monitors, and transported to their stretcher. no distress noted.
== END 2024-01-07 01:02 | disposition short-term general hospital (02) ==
PROVIDERS: Emergency Medicine; Emergency Provider Physician Assistant; PCP Family Medicine
DX: I81 Portal vein thrombosis (principal); K55.049 Acute infarction of large intestine, extent unspecified; N18.31 Chronic kidney disease, stage 3a; E11.22 Type 2 diabetes mellitus with diabetic chronic kidney disease; E11.51 Type 2 diabetes mellitus with diabetic peripheral angiopathy without gangrene; E03.9 Hypothyroidism, unspecified; G89.29 Other chronic pain; M25.562 Pain in left knee; M25.511 Pain in right shoulder; M54.41 Lumbago with sciatica, right side; Z87.891 Personal history of nicotine dependence; Z79.84 Long term (current) use of oral hypoglycemic drugs; Z79.4 Long term (current) use of insulin; Z79.899 Other long term (current) drug therapy; R94.31 Abnormal electrocardiogram [ECG] [EKG]
CPT/HCPCS: 36415; 70450; 71046; 74177; 80053; 81001; 83605; 83690; 83735; 85025; 85610; 85730; 93005; 96361; 96365; 96366; 96375; 99285; A9270; J1644; J2270; J2405; J7030; Q9967

== ENCOUNTER → 2024-06-21 10:15 | Outpatient (CLI) | payer MEDICARE, SELFPAY ==
--- NOTE | ~2024-06-21 | XR_ITS ---
[id number] Ordering provider: Iglesia Gooden MD History: . M79.671 - Pain in right foot/no trauma . Comparison: None. FINDINGS: BONES: No acute fracture or dislocation. JOINT SPACES: Osteoarthritic changes of the first metatarsal phalangeal joint. No tarsal coalition. SOFT TISSUES: Normal. IMPRESSION: No acute osseous abnormality of the right foot. Reviewed, dictated and finalized at location A. R [employer]
--- NOTE | ~2024-06-21 | XR_ITS ---
XR knee LT min 4V Ordering provider: Iglesia Gooden MD History: . M25.562 - Pain in left knee/no trauma . Comparison: None. FINDINGS: BONES: No acute fracture or dislocation. JOINT SPACES: Normal. SOFT TISSUES: Normal. IMPRESSION: No acute osseous abnormality left knee. Reviewed, dictated and finalized at location A. FIGHTER
== END ==
PROVIDERS: PCP Family Medicine; Visit Provider Family Medicine
DX: M25.562 Pain in left knee (principal); M79.671 Pain in right foot
CPT/HCPCS: 73564; 73630

== ENCOUNTER 2024-12-12 10:46 | Outpatient (CLI) | payer MEDICARE, SELFPAY ==
--- NOTE | ~2024-12-12 | CT_ITS ---
Clinical Indication: Lingular pulmonary nodule CT Scan of the Chest with Contrast: Technique: Contiguous sections were acquired throughout the chest after intravenous administration of 75 cc of Omnipaque 350. Dose reduction technique was used on this scan by utilizing automated exposu re control and iterative reconstruction technique. The dose-length product (DLP) was 313.04 mGy-cm. COMPARISON: 01/06/2024 Findings: There is no evidence of any significant mediastinal, hilar or axillary lymphadenopathy. Calcified med iastinal and hilar lymph nodes are present. There is no filling defect in the pulmonary arterial tree to suggest pulmonary embolus. There is no evidence of aortic dissection or aneurysm. There is no evidence of pleural or pericardial effusion. Calcified granulomas are scattered in the lungs. There is a 7 mm noncalcified nodule in the superior segment right lower lobe (axial image 33). Stable 10 mm noncalcified lingular nodule (axial image 73) . Images through the upper abdomen reveal tiny gallstones. Impression: Stable 10 mm lingular nodule. 7 mm noncalcified nodule superior segment right lower lobe. According to Fleischner Society criteria, for a low-risk patient, follow-up CT scan in 6-12 months advised, then consider additional 18-[address]. For a high-risk patient, follow-up CT scans at both 6-12 months and 18-24 months are recommend ed. Evidence of prior granulomatous disease. Reviewed, dictated and finalized at [facility]. Impression: Stable 10 mm lingular nodule. 7 mm noncalcified nodule superior segment right lower lobe. According to Fleisc hner Society criteria, for a low-risk patient, follow-up CT scan in 6-12 months advised, then consider additional 18-[address] For a high-risk patient, fol low-up CT scans at both 6-12 months and 18-24 months are recommended. Evidence of prior granulomatous disease.
[2024-12-12 11:14] LABS: Estimated Glomerular Filt Rate 50
--- OUTSIDE RECORDS SUMMARY | 2024-12-12 11:23 | XMS_ITS | Clinical Summary ---
Author Organization [facility] Medical Office Building B Address [address] [place] [address] Care Team Providers Care Pad Extraction Tender Name Role Phone Iglesia Gooden MD Primary Care Provider [phone] Allergies Active Allergy Reactions Criticality Noted Date Comments Penicillins Unknown Medium 01/07/2024 Patient reports allergy occurred as a child and he does not know what the reaction was Medications amLODIPine (NORVASC) 10 mg tablet Take 1 tablet (10 mg total) by mouth daily 11/06/2023 Active atorvastatin (LIPITOR) 40 mg tablet Take 1 tablet (40 mg total) by mouth daily 11/06/2023 Active OneTouch Ultra Test strip 1 each by other route 3 (three) times a day 11/23/2023 Active carvediloL (COREG) 25 mg tablet Take 1 tablet (25 mg total) by mouth 2 (two) times a day with meals 11/06/2023 Active Jardiance 25 mg tablet Take 1 tablet (25 mg total) by mouth daily 11/17/2023 Active finasteride (PROSCAR) 5 mg tablet Take 1 tablet (5 mg total) by mouth daily 11/06/2023 Active hydroCHLOROthia zide 12.5 mg tablet Take 1 tablet (12.5 mg total) by mouth daily 11/06/2023 Active LANTUS 100 unit/mL vial for injection Inject 60 Units under the skin nightly 11/06/2023 Active HumaLOG 200 unit/mL (3 mL) pen for injection Inject under the skin 3 (three) times a day Per sliding scale 11/08/2023 Active lidocaine (LIDODERM) 5 % Place 1 patch on the skin daily 12/31/2023 Active lisinopriL (PRINIVIL,ZESTR IL) 40 mg tablet Take 1 tablet (40 mg total) by mouth 2 (two) times a day 11/06/2023 Active meloxicam (MOBIC) 15 mg tablet Take 1 tablet (15 mg total) by mouth daily 11/06/2023 Active metFORMIN XR (GLUCOPHAGE XR) 500 mg 24 hr tablet Take 2 tablets (1,000 mg total) by mouth 2 (two) times a day 11/06/[address] (PROTONIX) 40 mg EC tablet Take 1 tablet (40 mg total) by mouth daily 11/06/2023 Active tamsulosin (FLOMAX) 0.4 mg extended release capsule Take 1 capsule (0.4 mg total) by mouth daily 11/06/2023 Active cholecalciferol (VITAMIN D-3) 2000 unit tablet Take 1 tablet (2,000 Units total) by mouth daily Active cyanocobalamin (Vitamin B-12) 1,000 mcg tabletIndicatio ns:Prevention of Vitamin B12 Deficiency Take 1 tablet (1,000 mcg total) by mouth daily Active apixaban (ELIQUIS) 5 mg tabletIndicatio ns:Venous Thrombosis Take 1 tablet (5 mg total) by mouth every 12 (twelve) hours 60 tablet 2 01/11/2024 Active polyethylene glycol (MIRALAX) 17 gram/dose bulk powder Take 17 g by mouth daily Active TechLITE Pen Needle 31 gauge x 5/16 needle 04/16/2024 Acti ve TechLITE Insulin Syringe 1 mL 30 gauge x 1/2 syringe 04/16/2024 Active Active Problems Problem Noted Date Diagnosed Date Hypertension 09/29/2024 Type 2 diabetes mellitus 09/29/2024 Stage 3 chronic kidney disease 09/29/2024 Screening for malignant neoplasm of colon 2023 Portal vein obstruction 01/07/2024 Encounters Date Type Department Care Team Description 09/28/2024 1:40 PM CDT Office Visit [facility] Gastroenterology [address] [place] [address] [place] [address] Madonna Coy PA Constipation, unspecified constipation type (Primary Dx); Abdominal pain; Portal vein obstruction; Obstructive thrombus; History of colon polyps; Family history of colon cancer from Last 3 Months Immunizations Immunization Administration Dates Next Due Influenza, Quadrivalent, Hig h Dose, Preservative Free, Intrr 04/08/2023,03/20/2022,03/22/2021 Influenza, Quadrivalent, Spl it, Preservative Free, Intramuscular 04/26/2020,05/20/2017 Influenza, Trivalent, High D ose, Split, Preservative Free, Intramuscular 05/06/2019,05/04/2018 Influenza, Trivalent, IM (MDV) 04/20/2014 Influenza, Trivalent, Preser vative Free, Intramuscular 02/26/2016,05/03/2015 Pneumococcal Conjugate PCV 13 11/30/2018 Pneumococcal Conjugate Pcv20 03/20/2022 Pneumococcal Polysaccharide PPV23 04/26/2020,03/2014 RSV, Bivalent, Protein Subun it Rsvpref, Diluent (Abrysvo) 04/22/2023 Tdap 03/20/2022 ZOSTER LIVE 05/27/2016 ZOSTER Recombinant 02/02/2019,11/30/2018 Surgical History Surgery Date Site/Laterality Comments HERNIA REPAIR Medical History Medical History Date Comments Hypertension Diabetes mellitus (HCC) GERD (gastroesophageal reflux disease) BPH (benign prostatic hyperplasia) Chronic kidney disease, stage III (moderate) (HC C) Colitis Non-occlusive thrombus Mesenteric vein thrombosis Umbilical hernia Social History Tobacco Use Types Packs/Day Years Used Date Smoking Tobacco: Some Days Cigarettes 0.1 6.4 Started: 2018 [employer] Passive Smoke Exposure: Current Smokeless Tobacco: Never Tobacco Cessation:Ready to Q uit: Not Asked; Counseling Given: Not Answered Comments:Pt said it help him sleep. Pt a smokes [facility] John Paul Bhagat stopped smoking cigarettes in 1979 Personal Safety Answer Date Recorded Have you ever been in or are you currently in a harmful physical or emotional relationship or is someone making you feel afraid or unsafe? 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 Gender Identity Not on file Sexual Orientation Not on file Obstetrics History Last Filed Vital Signs Vital Sign Reading Time Taken Comments Blood Pressure 112/55 09/28/2024 1:10 PM CDT Pulse 77 09/28/2024 1:10 PM CDT Temperature 36.6 C (97.8 F) 09/28/2024 1:10 PM CDT Respiratory Rate 18 04/22/2024 10:25 AM CDT Oxygen Saturation 96% 09/28/2024 1:10 PM CDT Inhaled Oxygen Concentration - - Weight 86.6 kg (191 lb) 09/28/2024 1:10 PM CDT Height 165.1 cm (5' 5) 09/28/2024 1:10 PM CDT Body Mass Index 31.78 09/28/2024 1:10 PM CDT Plan of Treatment Scheduled Procedures Name Priority Associated Diagnoses Date/Ti me COLONOSCOPY Screening for malignant neoplasm of colon Health Maintenance Due Date Last Done Comments Albumin Creatinine Ratio, Urine 1952 Colon Cancer Screening-Colonoscopy 1950 Depression Screening 1952 Hepatitis C Screening 1950 Dilated Eye Exam 1952 Foot Exam 1952 Lipid Panel 1952 Hepatitis B Screening 1970 Well Visit 65+ 2017 Covid-19 Vaccine (2023-2 5 season) 2024 04/08/2023, 11/19/2022, 03/20/2022, Additional history exists Hemoglobin A1C 07/08/2024 01/07/2024 Fall Risk Assessment 01/10/2025 01/11/2024 eGFR 01/10/2025 01/11/2024, 12/13, 01/09/2024, Additional history exists Influenza Vaccine (Season Ended) 2025 04/08/2023, 03/20/2022, 03/22/2021, Additional history exists DTaP/Tdap/Td Vaccine (2 - Td or Tdap) 03/20/2032 03/20/2022 Zoster Vaccine Completed 02/02/2019, 11/11, 05/27/2016 Pneumococcal vaccine 65+ Completed 022, 04/26/2020, 11/30/2018, Additional history exists Abdominal Aortic Aneurysm (A AA) Screen Completed 04/14/2024 Procedures Procedure Name Priority Date/Time Associated Diagnosis Comments CT ABDOMEN PELVIS W CONTRAST Schedule Routine, Read Routine (OP Routine) 04/14/2024 8:14 AM CDT Portal vein obstruction EGFR Routine 01/11/2024 2:15 AM CDT HEMOGLOBIN A1C STAT 01/07/2024 2:13 AM CDT from Last 3 Months or Most Recently Relevant to Health Maintenance Results * CT Abdomen Pelvis W Contrast (04/14/2024 8:14 AM CDT) Anatomical Region Laterality Modality Body N/A Computed Tomogra phy 04/14/2024 8:54 AM CDT Impressions 04/14/2024 8:54 AM CDT 1. Evolving changes of previously seen inferior mesenteric vein and intrahepatic portal vein thrombosis. Assessment for inferior mesenteric vein enhancement is limited due to its small decreased caliber. Right portal vein segments remain thrombosed and have decreased in caliber. The nonocclusive thrombus previously seen at the portal splenic confluence has resolved. 2. Persistent mesenteric stranding in the region of the thrombosed inferior mesenteric vein now more associated with the sigmoid colon which is nonspecific in this setting, but could be due in part to uncomplicated mild diverticulitis and/or. Rule out appendicitis. 3. Stable indeterminate 1 cm pulmonary nodule. Given stability for 3 months, recommend follow up of the Incidental lung nodule Additional Imaging In [address] Electronically signed by: Darwin Ramires M.D. Narrative 04/14/2024 8:54 AM CDT EXAMINATION: Computed tomography of the abdomen and pelvis with intravenous contrast HISTORY: 3 month follow-up from hospital stay. Portal vein obstruction. TECHNIQUE: Transaxial computed tomographic images of the abdomen and pelvis were obtained with intravenous contrast according to the standard protocol after the uneventful administration of 95 mL Opti-Ray 350 intravenous contrast. COMPARISON: 01/06/2024 FINDINGS: Images of the lower chest again show a 1 cm indeterminate pulmonary nodule in the lingula which is mildly hyperattenuating and may be enhancing or mildly calcified. Multiple calcified nodules in both lower lungs and in mediastinal lymph nodes are consistent with old granulomatous disease. The previously seen thrombosed inferior mesenteric vein is decreased in caliber and now diminutive in size with mild fat stranding along its course again seen. Its enhancement is difficult to assess due to the small size. There is been interval resolution of the thrombus in the portal splenic confluence. The previously seen thrombosed segments of the portal vein in the right hemiliver remain thrombosed and are decreased in caliber compared to the prior study. No new portal or mesenteric venous thrombosis identified. The subcapsular hypoattenuating lesion in segment 8 is too small to characterize but unchanged. A subcentimeter hyperattenuating focus in segment 2 (series 2 image 38) is not seen on the prior study and likely represents a small vascular shunt or a benign lesion such as a hemangioma or focal nodular hyperplasia is seen in earlier phase of contrast enhancement. Calcified granulomas in the liver and spleen. Normal gallbladder, pancreas, and kidneys with left renal cysts and lesions too small to characterize. The mild nodular thickening of the adrenal glands is unchanged. No enlarged lymph nodes. Normal caliber aorta and iliac arteries with atherosclerotic calcification. Enlarged prostate bulging into the base of the normal-appearing urinary bladder. There is mild diverticulosis of the descending and sigmoid colon. There is some mild stranding around the sigmoid colon in the region of both small diverticuli and the previously seen inferior mesenteric vein thrombosis which may be minimally increased. These findings are seen around images 137-145. There is also increased soft tissue thickening around epiploic appendages (image 127). Fat-containing periumbilical ventral hernia is unchanged. No suspicious osseous lesion. Sclerotic lesion in the right ilium likely representing a bone island is unchanged. Procedure Note Darwin Ramires MD - 04/14/2024 EXAMINATION: Computed tomography of the abdomen and pelvis with intravenous contrast HISTORY: 3 month follow-up from hospital stay. Portal vein obstruction. TECHNIQUE: Transaxial computed tomographic images of the abdomen and pelvis were obtained with intravenous contrast according to the standard protocol after the uneventful administration of 95 mL Opti-Ray 350 intravenous contrast. COMPARISON: 01/06/2024 FINDINGS: Images of the lower chest again show a 1 cm indeterminate pulmonary nodule in the lingula which is mildly hyperattenuating and may be enhancing or mildly calcified. Multiple calcified nodules in both lower lungs and in mediastinal lymph nodes are consistent with old granulomatous disease. The previously seen thrombosed inferior mesenteric vein is decreased in caliber and now diminutive in size with mild fat stranding along its course again seen. Its enhancement is difficult to assess due to the small size. There is been interval resolution of the thrombus in the portal splenic confluence. The previously seen thrombosed segments of the portal vein in the right hemiliver remain thrombosed and are decreased in caliber compared to the prior study. No new portal or mesenteric venous thrombosis identified. The subcapsular hypoattenuating lesion in segment 8 is too small to characterize but unchanged. A subcentimeter hyperattenuating focus in segment 2 (series 2 image 38) is not seen on the prior study and likely represents a small vascular shunt or a benign lesion such as a hemangioma or focal nodular hyperplasia is seen in earlier phase of contrast enhancement. Calcified granulomas in the liver and spleen. Normal gallbladder, pancreas, and kidneys with left renal cysts and lesions too small to characterize. The mild nodular thickening of the adrenal glands is unchanged. No enlarged lymph nodes. Normal caliber aorta and iliac arteries with atherosclerotic calcification. Enlarged prostate bulging into the base of the normal-appearing urinary bladder. There is mild diverticulosis of the descending and sigmoid colon. There is some mild stranding around the sigmoid colon in the region of both small diverticuli and the previously seen inferior mesenteric vein thrombosis which may be minimally increased. These findings are seen around images 137-145. There is also increased soft tissue thickening around epiploic appendages (image 127). Fat-containing periumbilical ventral hernia is unchanged. No suspicious osseous lesion. Sclerotic lesion in the right ilium likely representing a bone island is unchanged. IMPRESSION: 1. Evolving changes of previously seen inferior mesenteric vein and intrahepatic portal vein thrombosis. Assessment for inferior mesenteric vein enhancement is limited due to its small decreased caliber. Right portal vein segments remain thrombosed and have decreased in caliber. The nonocclusive thrombus previously seen at the portal splenic confluence has resolved. 2. Persistent mesenteric stranding in the region of the thrombosed inferior mesenteric vein now more associated with the sigmoid colon which is nonspecific in this setting, but could be due in part to uncomplicated mild diverticulitis and/or. Rule out appendicitis. 3. Stable indeterminate 1 cm pulmonary nodule. Given stability for 3 months, recommend follow up of the Incidental lung nodule Additional Imaging In [address] Electronically signed by: Darwin Ramires M.D. us Shahram Scales MD IMG CT PROCEDURES Staci l Result * eGFR (01/11/2024 2:15 AM CDT) eGFR 73 >=60 mL/min/1. 73 m2 Comment: Interpretive Data Reference Interval Normal >/= 90 mL/min/1.73m2 Mildly decreased* 60 - 89 mL/min/1.73m2 Mildly to moderately decreased 45 - 59 mL/min/1.73m2 Moderately to severely decreased 30 - 44 mL/min/1.73m2 Severely decreased 15 - 29 mL/min/1.73m2 Kidney Failure < 15 mL/min/1.73m2 *Relative to young adult level Estimated glomerular filtration rate is determined by the 2020 CKD-EPI equation recommended by the National Kidney Foundation (A Unifying Approach to GFR Estimation: Recommendations of the NKF-ASK Task Force on Reassessing the Inclusion of Race in Diagnosing Kidney Disease, JASN 2020). The CKD-EPI equation should not be used for patients with unstable renal function and has not been validated in children and those over 70. Current interpretive data was last reviewed 2021. Blood 01/11/2024 2:15 AM CDT 01/11/2024 4:07 AM CDT us Pita Bush NP LAB BLOOD ORDERABLES Final Res ult [facility] Department [place] [address] * (ABNORMAL) Hemoglobin A1c (01/07/2024 2:13 AM CDT) Hgb A1C 8.8(H) 4.0 - 5.6 % Estimated Average Glucose 206 mg/dL ADELA RODRIGUEZ Comment: The ADA recommends reporting an estimated Average Glucose (eAG) with all Hemoglobin A1c results using the equation derived from a study of 507 normal and diabetic adults. Minority populations were underrepresented and children were not included. (Diabetes Care 2020; 43(S1): S66-S76). The eAG is not equivalent to a fasting glucose. Blood 01/07/2024 2:13 AM CDT 01/07/2024 2:43 AM CDT Shahram Scales MD LAB BLOOD ORDERABLES F inal Result [facility] Department [place] [address] from Last 3 Months or Most Recently Relevant to Health Maintenance Insurance MEDICARE COMMERCIAL GENERIC MEDICARE [facility] MEDICARE BLUE CROSS MEDICARE SUPPLEMENT Advance Directives For more information, please contact: [phone] * Full Code (Latest Code Status on File) Date Activated Date Inactivated Comments 01/07/2024 1:36 AM 01/11/2024 6:17 PM Care Teams Pad Extraction Tender Relationship Specialty Start Date End Date Iglesia Gooden MD [address] [id number] PCP - General 05/04/18
--- OUTSIDE RECORDS SUMMARY | 2024-12-12 11:23 | XMS_ITS | Referral Summary ---
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 Name Role Phone Iglesia Gooden MD Primary Care Provider [phone] Encounters Date Type Department Care Team Description 09/28/2024 1:40 PM CDT Office Visit [facility] Gastroenterology [address] [id number] Madonna Coy PA Constipation, unspecified constipation type (Primary Dx); Abdominal pain; Portal vein obstruction; Obstructive thrombus; History of colon polyps; Family history of colon cancer from Last 3 Months Allergies Active Allergy Reactions Criticality Noted Date [...] Active TechLITE Pen Needle 31 gauge x 16 needle 04/16/2024 Acti ve TechLITE Insulin Syringe 1 mL 30 gauge x 1/2 syringe 04/16/2024 Active Active Problems Problem Noted Date Diagnosed Date Hypertension 09/29/2024 Type 2 diabetes mellitus 09/29/2024 Stage 3 chronic kidney disease 09/29/2024 Screening for malignant neoplasm of colon 2023 Portal vein obstruction 01/07/2024 Immunizations Immunization Administration Dates Next Due Influenza, [...] 03/20/2022 ZOSTER LIVE 05/27/2016 ZOSTER Recombinant 02/02/2019,11/30/2018 Social History Tobacco Use Types Packs/Day Years Used Date Smoking Tobacco: Some Days Cigarettes 0.1 6.4 Started: 2018 [place] Passive Smoke Exposure: Current Smokeless Tobacco: Never Tobacco Cessation:Ready to Q uit: Not Asked; Counseling Given: Not Answered Comments:Pt said it help him sleep. Pt a smokes [facility] John Paul Bhagat stopped smoking cigarettes in 1979 Personal Safety Answer Date Recorded Have you ever been in or are you currently in a harmful physical or emotional relationship or is someone making you feel afraid or unsafe? 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 Gender Identity Not on file Sexual Orientation Not on file Last Filed Vital Signs Vital Sign Reading [...] COLONOSCOPY Screening for malignant neoplasm of colon Procedures Procedure Name Priority Date/Time Associated Diagnosis [...] NP LAB BLOOD ORDERABLES Final Res ult [facility] [place] [address] * (ABNORMAL) Hemoglobin A1c (01/07/2024 2:13 AM [...] MD LAB BLOOD ORDERABLES F inal Result [facility] [place] [address] from Last 3 Months or Most Recently Relevant to Health Maintenance Insurance MEDICARE COMMERCIAL GENER[place] [id number] MEDICARE [facility] MEDICARE BLUE CROSS MEDICARE SUPPLEMENT Advance Directives For more information, please contact: [phone] * Full Code (Latest Code Status on File) Date Activated Date Inactivated Comments 01/07/2024 1:36 AM 01/11/2024 6:17 PM Care Teams [employer] Air[employer] Officer Relationship Specialty Start Date End Date Iglesia Gooden MD [address] [address] PCP - General 05/04/18
== END 2024-12-12 10:47 | disposition home or self-care (01) ==
PROVIDERS: PCP Family Medicine; Visit Provider Family Medicine
DX: R91.1 Solitary pulmonary nodule (principal)
CPT/HCPCS: 71260; Q9967

== ENCOUNTER 2024-12-27 01:55 | Day surgery (SDC) | payer MEDICARE, SELFPAY ==
[2024-12-21 13:53] VITALS: BMI 31.1
--- NOTE | 2024-12-21 14:48 | PC.NURSE ---
Spoke with PATIENT regarding medication ELIQUIS. _PATIENT verbalizes understanding that the last dose is to be taken on 12/23/24 and the Endoscopist will instruct them when to restart after the procedure. Patient states Dr. Kendrick at [facility] also told him he could hold Eliquis for this procedure.
--- OUTSIDE RECORDS SUMMARY | 2024-12-27 01:58 | XMS_ITS | Referral Summary ---
Author Organization [facility] Medical Office Building B Address [address] [place] [address] Care Team Providers Care Pharmacists Name Role Phone Iglesia Gooden MD Primary Care Provider [phone] Encounters Date Type Department Care Team Description 09/28/2024 1:40 PM CDT Office Visit [facility] Gastroenterology [address] 12th [place] [address] [place] [id number] Madonna Coy PA Constipation, unspecified constipation type [...] Date Smoking Tobacco: Some Days Cigarettes 0.1 6.5 Started: 2018 [employer] Passive Smoke Exposure: Current Smokeless Tobacco: Never Tobacco Cessation:Ready to Q uit: Not Asked; Counseling Given: Not Answered Comments:Pt said it help him sleep. Pt a smokes [facility] John Paul Bhagat stopped smoking cigarettes in 1979 Personal Safety Answer Date Recorded Have you ever been in or are you currently in a harmful physical or emotional relationship or is someone making you feel afraid or unsafe? 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 Gender Identity Not on file Sexual [...] NP LAB BLOOD ORDERABLES Final Res ult [facility] Department [place] [address] * (ABNORMAL) Hemoglobin A1c (01/07/2024 [...] MD LAB BLOOD ORDERABLES F inal Result [facility] Department [place] [address] from Last 3 Months or Most Recently Relevant to Health Maintenance Insurance MEDICARE [employer] [place] [id number] MEDICARE [facility] MEDICARE BLUE CROSS MEDICARE SUPPLEMENT Advance Directives For more information, please contact: [phone] * Full Code (Latest Code Status on File) Date Activated Date Inactivated Comments 01/07/2024 1:36 AM 01/11/2024 6:17 PM Care Teams Pharmacists Relationship Specialty Start Date End Date Iglesia Gooden MD [address] [address] PCP - General 05/04/18
--- OUTSIDE RECORDS SUMMARY | 2024-12-27 01:58 | XMS_ITS | Clinical Summary ---
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 Pt a smokes [facility] John Paul Bhagat stopped smoking cigarettes in 1979 Personal Safety Answer Date Recorded Have you ever been in or are you currently in a harmful physical or emotional relationship or is someone making you feel afraid or unsafe? 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 Gender Identity Not on file Sexual Orientation [...] NP LAB BLOOD ORDERABLES Final Res ult [facility] Department [place] [address] * (ABNORMAL) Hemoglobin A1c (01/07/2024 2:13 AM [...] ORDERABLES F inal Result [facility] Department [place] [address] from Last 3 Months or Most Recently Relevant to Health Maintenance Insurance MEDICARE [facility] Address: [place] [id number] [place] [address] 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 GENERIC Member Subscriber Plan / Payer (Ef fective 2018-Present) Name:John Paul Bhagat Relation to Subscriber:Self Name:JOHN PAUL BHAGAT Payer ID:[id number] Group ID:Not on file Type:[employer] Address: [address] [address] MEDICARE [facility] MEDICARE BLUE CROSS MEDICARE SUPPLEMENT Advance Directives For more information, please contact: [phone] * Full Code (Latest Code Status on File) Date Activated Date Inactivated Comments 01/07/2024 1:36 AM 01/11/2024 6:17 PM Care Teams 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
[2024-12-27 10:05] VITALS: BP 142/73; PULSE 75; RESP 16; TEMP 36.6; O2SAT 99; BMI 31.4
--- NOTE | 2024-12-27 10:23 | P.PNAN_ITS ---
Anes - Initial Pre Proc Eval Procedure: Operation Date: 12/27/24 12:30 Proposed Procedures p Colonoscopy - Kaushik Latif MD Date/Time: 12/27/24 10:23 Surgeon: Kaushik Latif MD Pre Op Diagnosis: Benign neoplasm of colon, unspecified,Constipation Patient Data Age: 74 Gender: M Height: 1.65 m Weight: 85.7 kg Last Vital Signs Temp 36.6 C 12/27/24 10:05 Pulse 75 12/27/24 10:05 Resp 16 12/27/24 10:05 BP 142/73 H 12/27/24 10:05 Pulse Ox 99 12/27/24 10:05 O2 Del Method Room Air 12/27/24 10:05 Allergies Allergy/AdvReac Type Severity Reaction Status Date / Time Penicillins Allergy Severe Swelling Verified 12/27/24 10:13 of Lip/Tongue/Throat Home Medications ?Medication ?Instructions ?Recorded ?Confirmed ?Type cyanocobalamin (vitamin B-12) 1,000 mcg PO DAILY 04/07/22 12/27/24 History 1,000 mcg tablet blood sugar diagnostic #400 ea 11/17/23 09/14/24 Rx cholecalciferol (vitamin D3) 50 1,000 unit PO DAILY 11/17/23 12/27/24 History mcg (2,000 unit) tablet acetaminophen 500 mg capsule 500 mg PO Q6H PRN pain #20 caps 12/30/23 12/21/24 Rx lidocaine 5 % topical patch 1 patch topical DAILY #15 ea 12/30/23 09/14/24 Rx amlodipine 10 mg tablet 10 mg PO DAILY #90 tabs 06/21/24 12/27/24 Rx apixaban 5 mg tablet (Eliquis) 5 mg PO BID #180 tabs 06/21/24 12/27/24 Rx atorvastatin 40 mg tablet 40 mg PO DAILY #90 tabs 06/21/24 12/27/24 Rx carvedilol 25 mg tablet 25 mg PO Q12H #180 tabs 06/21/24 12/27/24 Rx empagliflozin 25 mg tablet 25 mg PO QAM #90 tabs 06/21/24 12/27/24 Rx (Jardiance) finasteride 5 mg tablet 5 mg PO DAILY #90 tabs 06/21/24 12/27/24 Rx hydrochlorothiazide 12.5 mg tablet 12.5 mg PO DAILY #90 tabs 06/21/24 12/27/24 Rx insulin lispro 200 unit/mL (3 mL) See Rx Instructions .Route 06/21/24 12/27/24 Rx subcutaneous pen (Humalog KwikPen .COMPLEX #45 mL U-200 Insulin) insulin syringe-needle U-100 1 mL #100 ea 06/21/24 09/14/24 Rx 30 gauge x 1/2 (TechLITE Insulin Syringe) lancets 33 gauge (OneTouch Delica #400 ea 06/21/24 09/14/24 Rx Plus Lancet) lisinopril 40 mg tablet 40 mg PO BID #180 tabs 06/21/24 12/27/24 Rx metformin 500 mg tablet,extended 1,000 mg (2 x 500 mg) PO BID #360 06/21/24 0 12/27/24 Rx release 24 hr tabs pantoprazole 40 mg tablet,delayed 40 mg PO QAM #90 tabs 06/21/24 12/27/24 Rx release pen needle, diabetic 31 gauge x #400 ea 06/21/24 09/14/24 Rx 5/16 (TechLITE Pen Needle) polyethylene glycol 3350 17 gram 17 g PO DAILY #100 ea 06/21/24 12/27/24 Rx oral powder packet (Miralax) tamsulosin 0.4 mg capsule 0.4 mg PO . b.i.d. #180 caps 06/21/24 12/27/24 Rx insulin glargine 100 unit/mL 75 unit (0.75 mL) subcut DAILY #70 07/21/24 12/27/24 Rx subcutaneous solution (Lantus mL U-100 Insulin) blood sugar diagnostic (Blood #100 ea 08/03/24 09/14/24 Rx Glucose Test strips) Patient hx anesthesia problems: none Family hx anesthesia problems: none Results Review: All pre-operative results and documents have been reviewed as part of the pre- operative evaluation. [facility] Past Medical History Medical History Functional memory problem (~12/2023) difficulty with short-term memory and word-finding Chronic low back pain with left-sided sciatica CT of the lumbar spine on 12/30/2023 with moderate to severe spondylosis and severe neuroforaminal stenosis bilaterally. BMI 31.0-31.9,adult Constipation Colitis presumed to be due to infection (~01/06/24) treated with Cipro and Flagyl in-hospital Screening for diabetic retinopathy (04/09/21) no diabetic retinopathy on 04/09/2021. no retinopathy or macular degeneration on 06/27/2021. At low risk for fall At moderate risk for fall Chronic pain in right foot X-ray of the right foot on 04/23/2024 revealed osteoarthritis of the 1st MTP joint, but otherwise unremarkable. Pulmonary nodule 1 cm or greater in diameter 1 cm pulmonary nodule medial lingula on CT of the abdomen and pelvis on 01/06/2024. CT on 04/17/2024 with incidental pulmonary nodule unchanged. Recheck in [address] lung 12/12/2024 revealed stable 10 mm nodule of the lingular area. 7 mm noncalcified nodule right lower lobe with recheck 6-12 months Type 2 diabetes mellitus with mild nonproliferative diabetic retinopathy without macular edema, left eye (~01/27/24) mild nonproliferative diabetic retinopathy without macular edema OS, left eye 01/27/2024.. BPH without obstruction/lower urinary tract symptoms Portal vein thrombosis (~01/06/24) portal vein thrombosis with thrombosis of multiple branches. 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 Hypercoagulability workup was negative. Discharged 01/11/2024 Portal vein thrombosis Chronic low back pain with right-sided sciatica (~2022) Eczema Encounter for prostate cancer screening PSA 0.6 on 03/25/2022. PSA 0.48 on 05/05/2023. PSA 0.74 on 06/13/2024. Obesity (BMI 30-39.9) Microalbuminuric diabetic nephropathy microalbumin ratio 69 on 08/28/2021. Microalbumin ratio 214 on 09/30/2022.Microalbumin ratio of 177 on 11/03/2023. Adult BMI 35.0-35.9 kg/sq m Colon cancer screening Hemoglobin A1c greater than 8.0 percent 10/15/20 = 8.5 BMI 34.0-34.9,adult Chronic pain of left knee X-ray of the left knee on 06/21/2024 was unremarkable. Chronic toe pain, left foot Personal history of tobacco use 2 packs daily for 30 years with patient quitting in 1989 Hypersomnia Umbilical hernia without obstruction and without gangrene Chronic right shoulder pain BMI 39.0-39.9,adult Hypothyroidism, unspecified (10/15/20) TSH 5.27 on 10/15/2020. TSH 4.46 on 03/25/2022. TSH 4.38 on 11/03/2023. Nocturia PSA 0.6 on 03/25/2022. Ulnar neuropathy at elbow of right upper extremity Bilateral carpal tunnel syndrome Chronic kidney disease (CKD) stage G3a/A1, moderately decreased glomerular filtration rate (GFR) between 45-59 mL/min/1.73 square meter and albuminuria creatinine ratio less than 30 mg/g BUN 20, creatinine 1.3, GFR 56 on 08/28/2021. BUN 23, creatinine 1.32 with GFR 58 on 03/25/2022. BUN 21, creatinine 1.23 with GFR 64 on 09/30/2022. BUN 22, creatinine 1.37 with GFR 55 on 05/05/2023. BUN 24, creatinine 1.31, GFR 59 on 11/03/2023. BUN 22, creatinine 1.19 with GFR 65 on 06/13/2024. Family History Family History Grandparent Cerebrovascular accident, Onset Age: 81 Family history of malignant neoplasm of bone, Onset Age: 70 Mother Carcinoma of colon, Onset Age: 69 Father Family history of lung cancer, Onset Age: 9 Family history of primary malignant neoplasm of liver, Onset Age: 9 Sibling Family history of malignant neoplasm of brain, Onset Age: 54 Family history of malignant neoplasm of breast in first degree relative, Onset Age: 54 Social History Social History Smoking packs per day: 2 Smoking cigarettes per day: 40.0 Years smoked: 20 Smoking pack-years: 40.00 Smoking status: Former smoker Tobacco type: cigarettes Alcohol intake: never Substance use: current Substance use type: marijuana Other substance usage details: SMOKES SMALL AMOUNT DAILY Lack of Transportation: No Lack of Food: Never True Current Housing: I Have Housing Concerned About Future Housing: No Difficulty Paying Gas/Electric Bills: No Difficulty Paying for Meds: No Currently Unemployed: No Education: Trade/Vocational Certificate Difficulty w/ Childcare or Family Care: No Living arrangements: with family Occupation/Education: retired Gender identity (if verbalized by the patient): Male Spiritual care concerns: No Anes - Eval Final PreProcedure Day of Procedure 12/27/24 10:23 Patient weight: obese Heart: regular rate and rhythm Lungs: decreased breath sounds Airway: Mallampati scale class II Neurological: alert and oriented Last oral intake: >/= 8 hours ASA classification: III Emergent: no Anesthetic plan: proceed Anesthesia type and monitoring: general GIVS and standard monitoring Results Review: All pre-operative results and documents have been reviewed as part of the pre- operative evaluation. Informed Consent: The patient's anesthetic plan and its attendant risks and benefits were discussed with the patient/family/POA. Questions were solicited and answers provided to the satisfaction of the patient/family/POA.
[2024-12-27 10:38] LABS: Glucose Point of Care 124 mg/dl (65-105)
[2024-12-27] MEDS: LACTATED RINGERS 1,000 ML 150 ML IV CONT (10:38)
--- NOTE | 2024-12-27 11:12 | P.HP_ITS ---
H&P: HPI History of Present Illness Date/Time: 12/27/24 11:12 Chief Complaint: History of colon polyps -family history of colon cancer Narrative: This patient has family history of colorectal cancer. both his mother and father had colorectal cancer. In addition, the patient had colonic polyps. Review of Systems Review of Systems: All systems reviewed & are unremarkable except as noted in HPI and below PMFSH Past Medical History Medical History Functional memory problem (~12/2023) difficulty with short-term memory and word-finding Chronic low back pain with left-sided sciatica CT of the lumbar spine on 12/30/2023 with moderate to severe spondylosis and severe neuroforaminal stenosis bilaterally. BMI 31.0-31.9,adult Constipation Colitis presumed to be due to infection (~01/06/24) treated with Cipro and Flagyl in-hospital Screening for diabetic retinopathy (04/09/21) no diabetic retinopathy on 04/09/2021. no retinopathy or macular degeneration on 06/27/2021. At low risk for fall At moderate risk for fall Chronic pain in right foot X-ray of the right foot on 04/23/2024 revealed osteoarthritis of the 1st MTP joint, but otherwise unremarkable. Pulmonary nodule 1 cm or greater in diameter 1 cm pulmonary nodule medial lingula on CT of the abdomen and pelvis on 01/06/2024. CT on 04/17/2024 with incidental pulmonary nodule unchanged. Recheck in [address] lung 12/12/2024 revealed stable 10 mm nodule of the lingular area. 7 mm noncalcified nodule right lower lobe with recheck 6-12 months Type 2 diabetes mellitus with mild nonproliferative diabetic retinopathy without macular edema, left eye (~01/27/24) mild nonproliferative diabetic retinopathy without macular edema OS, left eye 01/27/2024.. BPH without obstruction/lower urinary tract symptoms Portal vein thrombosis (~01/06/24) portal vein thrombosis with thrombosis of multiple branches. 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 Hypercoagulability workup was negative. Discharged 01/11/2024 Portal vein thrombosis Chronic low back pain with right-sided sciatica (~2022) Eczema Encounter for prostate cancer screening PSA 0.6 on 03/25/2022. PSA 0.48 on 05/05/2023. PSA 0.74 on 06/13/2024. Obesity (BMI 30-39.9) Microalbuminuric diabetic nephropathy microalbumin ratio 69 on 08/28/2021. Microalbumin ratio 214 on 09/30/2022.Microalbumin ratio of 177 on 11/03/2023. Adult BMI 35.0-35.9 kg/sq m Colon cancer screening Hemoglobin A1c greater than 8.0 percent 10/15/20 = 8.5 BMI 34.0-34.9,adult Chronic pain of left knee X-ray of the left knee on 06/21/2024 was unremarkable. Chronic toe pain, left foot Personal history of tobacco use 2 packs daily for 30 years with patient quitting in 1989 Hypersomnia Umbilical hernia without obstruction and without gangrene Chronic right shoulder pain BMI 39.0-39.9,adult Hypothyroidism, unspecified (10/15/20) TSH 5.27 on 10/15/2020. TSH 4.46 on 03/25/2022. TSH 4.38 on 11/03/2023. Nocturia PSA 0.6 on 03/25/2022. Ulnar neuropathy at elbow of right upper extremity Bilateral carpal tunnel syndrome Chronic kidney disease (CKD) stage G3a/A1, moderately decreased glomerular filtration rate (GFR) between 45-59 mL/min/1.73 square meter and albuminuria creatinine ratio less than 30 mg/g BUN 20, creatinine 1.3, GFR 56 on 08/28/2021. BUN 23, creatinine 1.32 with GFR 58 on 03/25/2022. BUN 21, creatinine 1.23 with GFR 64 on 09/30/2022. BUN 22, creatinine 1.37 with GFR 55 on 05/05/2023. BUN 24, creatinine 1.31, GFR 59 on 11/03/2023. BUN 22, creatinine 1.19 with GFR 65 on 06/13/2024. Family History Family History Grandparent Cerebrovascular accident, Onset Age: 81 Family history of malignant neoplasm of bone, Onset Age: 70 Mother Carcinoma of colon, Onset Age: 69 Father Family history of lung cancer, Onset Age: 9 Family history of primary malignant neoplasm of liver, Onset Age: 9 Sibling Family history of malignant neoplasm of brain, Onset Age: 54 Family history of malignant neoplasm of breast in first degree relative, Onset Age: 54 Social History Social History Smoking packs per day: 2 Smoking cigarettes per day: 40.0 Years smoked: 20 Smoking pack-years: 40.00 Smoking status: Former smoker Tobacco type: cigarettes Alcohol intake: never Substance use: current Substance use type: marijuana Other substance usage details: SMOKES SMALL AMOUNT DAILY Lack of Transportation: No Lack of Food: Never True Current Housing: I Have Housing Concerned About Future Housing: No Difficulty Paying Gas/Electric Bills: No Difficulty Paying for Meds: No Currently Unemployed: No Education: Trade/Vocational Certificate Difficulty w/ Childcare or Family Care: No Living arrangements: with family Occupation/Education: retired Gender identity (if verbalized by the patient): Male Spiritual care concerns: No Meds Home Medications and Allergies Home Medications ?Medication ?Instructions ?Recorded ?Confirmed ?Type cyanocobalamin (vitamin B-12) 1,000 mcg PO DAILY 04/07/22 12/27/24 History 1,000 mcg tablet blood sugar diagnostic #400 ea 11/17/23 09/14/24 Rx cholecalciferol (vitamin D3) 50 1,000 unit PO DAILY 11/17/23 12/27/24 History mcg (2,000 unit) tablet acetaminophen 500 mg capsule 500 mg PO Q6H PRN pain #20 caps 12/30/23 12/21/24 Rx lidocaine 5 % topical patch 1 patch topical DAILY #15 ea 12/30/23 09/14/24 Rx amlodipine 10 mg tablet 10 mg PO DAILY #90 tabs 06/21/24 12/27/24 Rx apixaban 5 mg tablet (Eliquis) 5 mg PO BID #180 tabs 06/21/24 12/27/24 Rx atorvastatin 40 mg tablet 40 mg PO DAILY #90 tabs 06/21/24 12/27/24 Rx carvedilol 25 mg tablet 25 mg PO Q12H #180 tabs 06/21/24 12/27/24 Rx empagliflozin 25 mg tablet 25 mg PO QAM #90 tabs 06/21/24 12/27/24 Rx (Jardiance) finasteride 5 mg tablet 5 mg PO DAILY #90 tabs 06/21/24 12/27/24 Rx hydrochlorothiazide 12.5 mg tablet 12.5 mg PO DAILY #90 tabs 06/21/24 12/27/24 Rx insulin lispro 200 unit/mL (3 mL) See Rx Instructions .Route 06/21/24 12/27/24 Rx subcutaneous pen (Humalog KwikPen .COMPLEX #45 mL U-200 Insulin) insulin syringe-needle U-100 1 mL #100 ea 06/21/24 09/14/24 Rx 30 gauge x 1/2 (TechLITE Insulin Syringe) lancets 33 gauge (OneTouch Delica #400 ea 06/21/24 09/14/24 Rx Plus Lancet) lisinopril 40 mg tablet 40 mg PO BID #180 tabs 06/21/24 12/27/24 Rx metformin 500 mg tablet,extended 1,000 mg (2 x 500 mg) PO BID #360 06/21/24 12/27/24 Rx release 24 hr tabs pantoprazole 40 mg tablet,delayed 40 mg PO QAM #90 tabs 06/21/24 12/27/24 Rx release pen needle, diabetic 31 gauge x #400 ea 06/21/24 09/14/24 Rx 5/16 (TechLITE Pen Needle) polyethylene glycol 3350 17 gram 17 g PO DAILY #100 ea 06/21/24 12/27/24 Rx oral powder packet (Miralax) tamsulosin 0.4 mg capsule 0.4 mg PO . b.i.d. #180 caps 06/21/24 12/27/24 Rx insulin glargine 100 unit/mL 75 unit (0.75 mL) subcut DAILY #70 07/21/24 12/27/24 Rx subcutaneous solution (Lantus mL U-100 Insulin) blood sugar diagnostic (Blood #100 ea 08/03/24 09/14/24 Rx Glucose Test strips) Allergies Allergy/AdvReac Type Severity Reaction Status Date / Time Penicillins Allergy Severe Swelling Verified 12/27/24 10:13 of Lip/Tongue/Throat Vital Signs Vital Signs - 24 hr 12/27/24 10:05 Temperature 97.8 F Pulse Rate 75 Respiratory Rate 16 Blood Pressure 142/73 H Pulse Oximetry 99 Oxygen Delivery Room Air Exam Const: General: cooperative and healthy appearing Resp: Effort & Inspection: normal respiratory effort and able to speak in c omplete sentences Auscultation: clear to auscultation bilaterally Cardio: Rate: regular rate Rhythm: regular rhythm GI: Inspection: normal to inspection GI Palp: No No hepatosplenomegaly present Auscultation: normal bowel sounds Rectal Exam: deferred Skin: General skin exam: normal color Psych: Appearance: grossly normal Mental Status: mental status grossly normal Assessment and Plan Assessment and plan (1) Polyp of colon: Qualifiers: Colon polyp type: adenomatous Colon location: unspecified part of colon Qualified Code(s): D12.6 - Benign neoplasm of colon, unspecified Code(s): K63.5 - Polyp of colon Status: Acute Assessment and Plan: The patient is deemed a good candidate for the procedure. Consent signed. Will proceed.
[2024-12-27] MEDS: SIMETHICONE ORAL SUSPENSION 20 MG/0.3 ML 30 ML BOTTLE 0.6 ML IRRIGATION (11:32)
--- NOTE | 2024-12-27 11:48 | S_PTH ---
PATIENT: Ambrosio Bhagat LOC: [facility]#:[id number] AGE/SX: 74/M ROOM: RE12/27/[address]: Kaushik Latif MD : 1950 BED: DIS: 12/27/2024 SPEC #: [id number] RECD: 12/27/24 13:12 STATUS: HUNG RESkye #: [id number] NICOLETTE: 12/27/24 11:[address]: Kaushik Latif DEPT: [facility] Surgical RECD BY: Oumar Hook ENTERED: 12/27/24 13:13 SP TYPE: Surgical OTHR DR: Iglesia Gooden MD Tissues: A - Colon Polypectomy B - Colon Polypectomy C - Colon Polypectomy Procedures: Hematoxylin and Eosin Stain Gross and Microscopic Level 4
[2024-12-27 11:50] VITALS: BP 109/61; PULSE 65; RESP 18; O2SAT 99
[2024-12-27 12:00] VITALS: BP 114/65; PULSE 64; RESP 16; O2SAT 98
[2024-12-27 12:08] LABS: Glucose Point of Care 108 mg/dl (65-105)
[2024-12-27 12:10] VITALS: BP 120/70; PULSE 60; RESP 16; O2SAT 98
== END 2024-12-27 12:28 | disposition home or self-care (01) ==
PROVIDERS: PCP Family Medicine; Referring Provider Family Medicine; Visit Provider Internal Medicine Gastroenterology
PROC: 0DJD8ZZ Inspection of Lower Intestinal Tract, Via Natural or Artificial Opening Endoscopic (ICD-10-PCS; CPT 45378; principal; 2024-12-27 12:30)
DX: Z12.11 Encounter for screening for malignant neoplasm of colon (principal); D12.3 Benign neoplasm of transverse colon; D12.4 Benign neoplasm of descending colon; K63.5 Polyp of colon; K57.30 Diverticulosis of large intestine without perforation or abscess without bleeding; E11.22 Type 2 diabetes mellitus with diabetic chronic kidney disease; N18.31 Chronic kidney disease, stage 3a; E11.3292 Type 2 diabetes mellitus with mild nonproliferative diabetic retinopathy without macular edema, left eye; E11.40 Type 2 diabetes mellitus with diabetic neuropathy, unspecified; N40.0 Benign prostatic hyperplasia without lower urinary tract symptoms; E03.9 Hypothyroidism, unspecified; G47.10 Hypersomnia, unspecified; G56.03 Carpal tunnel syndrome, bilateral upper limbs; G89.29 Other chronic pain; M79.671 Pain in right foot; M25.562 Pain in left knee; M79.675 Pain in left toe(s); M25.511 Pain in right shoulder; M54.41 Lumbago with sciatica, right side; M54.42 Lumbago with sciatica, left side; G56.21 Lesion of ulnar nerve, right upper limb; R41.3 Other amnesia; F12.90 Cannabis use, unspecified, uncomplicated; E66.9 Obesity, unspecified; Z68.31 Body mass index [BMI] 31.0-31.9, adult; Z79.01 Long term (current) use of anticoagulants; Z79.84 Long term (current) use of oral hypoglycemic drugs; Z79.4 Long term (current) use of insulin; Z87.891 Personal history of nicotine dependence; Z86.718 Personal history of other venous thrombosis and embolism; Z80.0 Family history of malignant neoplasm of digestive organs; Z80.8 Family history of malignant neoplasm of other organs or systems; Z80.1 Family history of malignant neoplasm of trachea, bronchus and lung; Z80.3 Family history of malignant neoplasm of breast; Z82.49 Family history of ischemic heart disease and other diseases of the circulatory system
CPT/HCPCS: 45385; 82948; 88305; J2003; J2704; J7120

== ENCOUNTER → 2025-05-17 08:43 | Outpatient (CLI) | payer MEDICARE, SELFPAY ==
--- NOTE | ~2025-05-17 | XR_ITS ---
EXAMINATION: XR knee LT min 4V, 05/17/2025 8:45 CAR STOWER HISTORY: M25.562 - Pain in left knee COMPARISON: No comparisons available. Findings: No acute fracture or malalignment. No significant degenerative changes. Soft tissues unremarkable. Impression: No acute fracture or malalignment. Reviewed, dictated and finalized at location P. STOWER Impression: No acute fracture or malalignment.
--- NOTE | ~2025-05-17 | XR_ITS ---
EXAMINATION: XR hip LT min 2V, 05/17/2025 8:54 PASTEURIZER HELPER HISTORY: M25.552 - Pain in left hip COMPARISON: No comparisons available. Findings: No acute fracture or malalignment. No significant degenerative changes. Soft tissues unremarkable. Impression: No acute fracture or malalignment. Reviewed, dictated and finalized at location P. EURIZER HELPER Impression: No acute fracture or malalignment.
--- OUTSIDE RECORDS SUMMARY | 2025-05-17 09:06 | XMS_ITS | Clinical Summary ---
Author Organization [facility] Medical Office Building [address] Address [address] [place] [address] Care Team Providers Care Remittance Clerk Name Role Phone Iglesia Gooden MD Primary Care Provider [phone] [phone] Allergies Active Allergy Reactions Criticality Noted Date [...] Medical History Date Comments Hypertension Diabetes mellitus GERD (gastroesophageal reflux disease) BPH (benign prostatic hyperplasia) Chronic kidney disease, stage III (moderate) (HC C) Colitis Non-occlusive thrombus Mesenteric vein thrombosis Umbilical hernia Social History Tobacco Use Types Packs/Day Years Used Date Smoking Tobacco: Some Days Cigarettes 0.1 6.8 Started: 2018 [place] Passive Smoke Exposure: Current Smokeless Tobacco: Never Tobacco Cessation:Ready to Q uit: Not Asked; Counseling Given: Not Answered Comments:Pt said it help him sleep. Pt a smokes [facility] John Paul Bhagat stopped smoking cigarettes in 1979 Personal Safety Answer Date Recorded Have you ever been in or are you currently in a harmful physical or emotional relationship or is someone making you feel afraid or unsafe? 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 Gender Identity Not on file Sexual Orientation Not on file Last Filed Vital Signs Vital Sign Reading Time Taken Comments Blood Pressure 158/73 01/23/2025 8:35 AM CDT Pulse 66 01/23/2025 8:35 AM CDT Temperature 36.4 C (97.5 F) 01/23/2025 8:35 AM CDT Respiratory Rate 18 01/23/2025 8:35 AM CDT Oxygen Saturation 98% 01/23/2025 8:35 AM CDT Inhaled Oxygen Concentration - - Weight 86.7 kg (191 lb 3.2 oz) 01/23/2025 8:35 A M CDT Height 165.1 cm (5' 5) 09/28/2024 1:10 PM CDT Body Mass Index 31.82 09/28/2024 1:10 PM CDT Plan of Treatment Scheduled Procedures Name Priority Associated Diagnoses Date/Ti me COLONOSCOPY Screening for malignant neoplasm of colon Health Maintenance Due Date Last Done Comments Albumin Creatinine Ratio, Urine 1952 Colon Cancer Screening-Colonoscopy 1952 Depression Screening 1952 Hepatitis C Screening 1952 Dilated Eye Exam 1952 Foot Exam 1952 Lipid Panel 1952 Hepatitis B Screening 1970 Well Visit 65+ 2017 Hemoglobin A1C 07/08/2024 01/07/2024 Fall Risk Assessment 01/10/2025 01/11/2024 Covid-19 Vaccine (2024-08 6 season) 2025 04/08/2023, 11/19/2022, 03/20/2022, Additional history exists Influenza Vaccine (#1) 2025 , 03/20/2022, 03/22/2021, Additional history exists eGFR 01/23/2026 01/23/2025, 0707/2023, 01/10/2024, Additional history exists DTaP/Tdap/Td Vaccine (2 - Td or Tdap) 03/20/2032 03/20/2022 Zoster Vaccine Completed 02/02/2019, 11/11, 05/27/2016 Pneumococcal vaccine 65+ Completed 022, 04/26/2020, 11/30/2018, Additional history exists Abdominal Aortic Aneurysm (A AA) Screen Completed 01/23/2025, 04/14/2024 Procedures Procedure Name Priority Date/Time Associated Diagnosis Comments EGFR Routine 01/23/2025 8:08 AM CDT Portal vein obstruction CT ABDOMEN W CONTRAST Schedule Routine, Read Routine (OP Routine) 01/23/2025 7:46 AM CDT Portal vein obstruction HEMOGLOBIN A1C STAT 01/07/2024 2:13 AM CDT from Last 3 Months or Most Recently Relevant to Health Maintenance Results * (ABNORMAL) eGFR (01/23/2025 8:08 AM CDT) eGFR 59(L) >=60 mL/min/1. 73 m2 Comment: Interpretive Data [...] interpretive data was last reviewed 2021. Blood 01/23/2025 8:08 AM CDT 01/23/2025 8:24 AM CDT us Sivan Kendrick MD LAB BLOOD ORDERABLES Final Resul t [facility] Department [place] [address] * CT Abdomen W Contrast (01/23/2025 7:46 AM CDT) Anatomical Region Laterality Modality Body N/A Computed Tomogra phy 01/23/2025 8:10 AM CDT Impressions 01/23/2025 8:10 AM CDT 1. Evolving sequela of segment 5 intrahepatic portal vein thrombosis without propagation. 2. Unchanged 1.1 cm lingular pulmonary nodule. Electronically signed by: Armen Gomez M.D. Narrative 01/23/2025 8:10 AM CDT EXAMINATION: Computed tomography of the abdomen with intravenous contrast HISTORY: Follow-up portal vein thrombosis TECHNIQUE: Transaxial computed tomographic images of the abdomen were obtained with intravenous contrast according to the standard protocol after the uneventful administration of 69 mL Opti-Ray 350 intravenous contrast. COMPARISON: 04/14/2024 FINDINGS: Within the lung bases, a 1.1 cm nodule in the lingula on series 3 image 14 is stable. Additional calcified pulmonary nodules are also present and is unchanged. Mild left ventricular enlargement without pericardial effusion. Again seen are sequela of portal vein thrombosis within hepatic segment 5. There is some mild associated atrophy. There has been no propagation of thrombosis within the other portal vein branches. The splenic and superior mesenteric vein appear patent. There is a benign-appearing cyst in hepatic segment 8. No biliary duct dilatation. Stones are present in a nondistended gallbladder. Nodular thickening of both adrenal glands is unchanged. Normal pancreas and spleen. No hydronephrosis or suspicious renal lesion. The abdominal aorta is atherosclerotic but nonaneurysmal. No retroperitoneal or mesenteric lymphadenopathy. Imaged portions of the small and large bowel demonstrate no wall thickening or obstruction. No ascites. No suspicious osseous lesion or fracture is identified. Procedure Note Armen Gomez MD - 01/23/2025 EXAMINATION: Computed tomography of the abdomen with intravenous contrast HISTORY: Follow-up portal vein thrombosis TECHNIQUE: Transaxial computed tomographic images of the abdomen were obtained with intravenous contrast according to the standard protocol after the uneventful administration of 69 mL Opti-Ray 350 intravenous contrast. COMPARISON: 04/14/2024 FINDINGS: Within the lung bases, a 1.1 cm nodule in the lingula on series 3 image 14 is stable. Additional calcified pulmonary nodules are also present and is unchanged. Mild left ventricular enlargement without pericardial effusion. Again seen are sequela of portal vein thrombosis within hepatic segment 5. There is some mild associated atrophy. There has been no propagation of thrombosis within the other portal vein branches. The splenic and superior mesenteric vein appear patent. There is a benign-appearing cyst in hepatic segment 8. No biliary duct dilatation. Stones are present in a nondistended gallbladder. Nodular thickening of both adrenal glands is unchanged. Normal pancreas and spleen. No hydronephrosis or suspicious renal lesion. The abdominal aorta is atherosclerotic but nonaneurysmal. No retroperitoneal or mesenteric lymphadenopathy. Imaged portions of the small and large bowel demonstrate no wall thickening or obstruction. No ascites. No suspicious osseous lesion or fracture is identified. IMPRESSION: 1. Evolving sequela of segment 5 intrahepatic portal vein thrombosis without propagation. 2. Unchanged 1.1 cm lingular pulmonary nodule. Electronically signed by: Armen Gomez M.D. us Sivan Kendrick MD IMG CT PROCEDURES Final Result * (ABNORMAL) Hemoglobin A1c (01/07/2024 2:13 AM CDT) Hgb A1C 8.8(H) 4.0 - 5.6 % Estimated Average Glucose 206 mg/dL [facility] Comment: The ADA recommends reporting an estimated Average Glucose (eAG) with all Hemoglobin A1c results using the equation derived from a study of 507 normal and diabetic adults. Minority populations were underrepresented and children were not included. (Diabetes Care 2020; 43(S1): S66-S76). The eAG is not equivalent to a fasting glucose. Blood 01/07/2024 2:13 AM CDT 01/07/2024 2:43 AM CDT us Shahram Scales MD LAB BLOOD ORDERABLES F inal Result [facility] Department [place] [address] from Last 3 Months or Most Recently Relevant to Health Maintenance Insurance MEDICARE COMMERCIAL GENERIC MEDICARE [facility] MEDICARE SUPPLEMENT MEDICARE [facility] MEDICARE SUPPLEMENT Advance Directives For more information, please contact: [phone] * Full Code (Latest Code Status on File) Date Activated Date Inactivated Comments 01/07/2024 1:36 AM 01/11/2024 6:17 PM Care Teams Remittance Clerk Relationship Specialty Start Date End Date Iglesia Gooden MD [address] [place] [address] PCP - General 05/04/18
== END ==
LOC: EXPTRAD 08:46
PROVIDERS: PCP Family Medicine; Visit Provider Family Medicine
DX: M25.552 Pain in left hip (principal); G89.29 Other chronic pain; M25.562 Pain in left knee
CPT/HCPCS: 73502; 73564

== ENCOUNTER 2025-06-30 09:19 | Outpatient (CLI) | payer MEDICARE, SELFPAY ==
--- NOTE | ~2025-06-30 | CT_ITS ---
EXAMINATION:CT diagnostic chest w con DATE: 06/30/2025 09:59 INDICATION: Lung nodule TECHNIQUE: Computed tomography (CT) of the chest was performed with intravenous contrast. The dose-length product (DLP) was 294.20 mGy-cm. COMPARISON: December 12, 2024 FINDINGS: 7 mm subpleural right lower lobe nodule image 30 series 4 is unchanged. 10 mm lingular nodule image 39 is stable. Scattered benign calcified granulomas noted. No new nodules or masses. Heart and great vessels also stable with no thoracic aortic aneurysm, dissection or large pulmonary emboli. Coronary artery calcification. No acute process seen in the visualized portions of the upper abdomen or extrathoracic soft tissues. Cholelithiasis and degenerative changes throughout the thoracic spine as well as calcified granuloma in the liver and spleen again noted. IMPRESSION: 1. Stable lung nodules. The right upper lobe nodule will need to be followed for 24 months. Repeat examination in 6 months, with recommended date of the next exam on or about December 292025 or sooner if clinically appropriate. 2. Other chronic findings as above. Reviewed, dictated and finalized at location A. DEPOT REP IMPRESSION: 1. Stable lung nodules. The right upper lobe nodule will need to be followed fo r 24 months. Repeat examination in 6 months, with recommended date of the next exam on or about December 292025 or sooner if clinically appropriate. 2. Other chronic findings as above.
--- OUTSIDE RECORDS SUMMARY | 2025-06-30 09:35 | XMS_ITS | Encounter Summary ---
Author Organization [facility] Address [address] [place] [address] Phone Care Team Providers Care Press Helper Name Role Phone Iglesia Gooden MD Primary Care Provider [phone] [phone] Encounter Details Date Type Department Care Team (Late st Contact Info) Description 05/17/2025 Orders Only [facility] Scanning, Provider Social History Tobacco Use Types Packs/Day Years Used Date Smoking Tobacco: Some Days Cigarettes 0.1 7 Started: 2019 [place] Passive Smoke Exposure: Current Smokeless Tobacco: Never Comments:Pt said it help him sleep. Pt a smokes [employer] Ambrosio Bhagat stopped smoking cigarettes in 1979 Personal Safety Answer Date Recorded Have you ever been in or are you currently in a harmful physical or emotional relationship or is someone making you feel afraid or unsafe? 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 Gender Identity Not on file Sexual Orientation Not on file documented as of this encounter Plan of Treatment Scheduled Procedures Name Priority Associated Diagnoses Date/Ti me COLONOSCOPY Screening for malignant neoplasm of colon documented as of this encounter Procedures Procedure Name Priority Date/Time Associated Diagnosis Comments SCAN - RADIOLOGY/IMAGING 05/17/2025 documented in this encounter Results * SCAN - RADIOLOGY/IMAGING (05/17/2025) Anatomical Region Laterality Modality Other us Provider Scanning Final Result documented in this encounter Visit Diagnoses Not on filedocumented in this encounter Care Teams Press Helper Relationship Specialty Start Date End Date Iglesia Gooden MD [address] [address] PCP - General 05/04/18 documented as of this encounter
--- OUTSIDE RECORDS SUMMARY | 2025-06-30 09:35 | XMS_ITS | Clinical Summary ---
Author Organization [facility] Medical Office Building B Address [address] [place] [address] Care Team Providers Care Sales Systems Engineer Name Role Phone Iglesia Gooden MD Primary Care Provider [phone] [phone] Allergies Active Allergy Reactions Criticality Noted Date Comments Penicillins Unknown,Swelling High 04/08/2021 Patient reports allergy occurred as a child [...] Encounters Date Type Department Care Team Description 06/05/2025 Orders Only [facility] Scanning, Provider 05/31/2025 3:20 PM PEA VINER MECHANIC Office Visit [facility] [address] [place] [address] [place] [address] Madonna Coy PA Constipation, unspecified constipation type (Primary Dx); Generalized abdominal pain; Portal vein obstruction; Obstructive thrombus; History of colon polyps; Family history of colon cancer 05/17/2025 Orders Only [facility] Scanning, Provider from Last 3 Months Immunizations Immunization Administration [...] Types Packs/Day Years Used Date Smoking Tobacco: Former Cigarettes 0.1 7 S tarted: 2019 [place] Passive Smoke Exposure: Current Smokeless Tobacco: Never Tobacco Cessation:Counseling Given: Not Answered Comments:Pt said it help him sleep. Pt a smokes [facility] John Paul Bhagat stopped smoking cigarettes in 1979 Personal Safety Answer Date Recorded Have you ever been in or are you currently in a harmful physical or emotional relationship or is someone making you feel afraid or unsafe? 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 Gender Identity Not on file Sexual Orientation Not on file Last Filed Vital Signs Vital Sign Reading Time Taken Comments Blood Pressure 163/77 05/31/2025 2:32 PM PEA VINER MECHANIC Pulse 69 05/31/2025 2:32 PM PEA VINER MECHANIC Temperature 36.7 C (98.1 F) 05/31/2025 2:32 PM PEA VINER MECHANIC Respiratory Rate 18 01/23/2025 8:35 AM CDT Oxygen Saturation 98% 01/23/2025 8:35 AM CDT Inhaled Oxygen Concentration - - Weight 87.6 kg (193 lb 3.2 oz) 05/31/2025 2:32 P M PEA VINER MECHANIC Height 165.1 cm (5' 5) 05/31/2025 2:32 PM PEA VINER MECHANIC Body Mass Index 32.15 05/31/2025 2:32 PM PEA VINER MECHANIC Plan of Treatment Scheduled Procedures Name Priority [...] 03/22/2021, Additional history exists eGFR 01/23/2026 01/23/2025, 07/0 07/2023, 01/10/2024, Additional history exists DTaP/Tdap/Td Vaccine (2 - Td or Tdap) 03/20/2032 03/20/2022 Zoster Vaccine Completed 02/02/2019, 11/11, 05/27/2016 Pneumococcal vaccine 65+ Completed 022, 04/26/2020, 11/30/2018, Additional history exists Abdominal Aortic Aneurysm (A AA) Screen Completed 01/23/2025, 04/14/2024 Procedures Procedure Name Priority Date/Time Associated Diagnosis Comments SCAN - RADIOLOGY/IMAGING 06/05/2025 2:38 PM PEA VINER MECHANIC SCAN - RADIOLOGY/IMAGING 05/17/2025 EGFR Routine 01/23/2025 8:08 AM CDT Portal vein obstruction CT ABDOMEN W CONTRAST Schedule Routine, Read Routine (OP Routine) 01/23/2025 7:46 AM CDT Portal vein obstruction HEMOGLOBIN A1C STAT 01/07/2024 2:13 AM CDT from Last 3 Months or Most Recently Relevant to Health Maintenance Results * SCAN - RADIOLOGY/IMAGING (06/05/2025 2:38 PM PEA VINER MECHANIC) Anatomical Region Laterality Modality Other us Provider Scanning Final Result * SCAN - RADIOLOGY/IMAGING (05/17/2025) Anatomical Region Laterality Modality Other us Provider Scanning Final Result * (ABNORMAL) eGFR (01/23/2025 8:08 AM CDT) [...] 8:08 AM CDT 01/23/2025 8:24 AM CDT Sivan Kendrick MD LAB BLOOD ORDERABLES Final Resul t [facility] [place] [address] * CT Abdomen W Contrast (01/23/2025 7:46 [...] nodule. Electronically signed by: Armen Gomez M.D. Sivan Kendrick MD IMG CT PROCEDURES Final Result * (ABNORMAL) Hemoglobin A1c (01/07/2024 2:13 AM CDT) Hgb A1C 8.8(H) 4.0 - 5.6 % Estimated Average Glucose 206 mg/dL [facility] Comment: The ADA recommends reporting an estimated [...] ORDERABLES F inal Result [facility] [place] [address] from Last 3 Months or Most Recently Relevant to Health Maintenance Insurance MEDICARE [facility] MEDICARE [facility] MEDICARE SUPPLEMENT MEDICARE [facility] MEDICARE SUPPLEMENT Advance Directives For more information, please contact: [phone] * Full Code (Latest Code Status on File) Date Activated Date Inactivated Comments 01/07/2024 1:36 AM 01/11/2024 6:17 PM Care Teams Sales Systems Engineer Relationship Specialty Start Date End Date Iglesia Gooden MD [address] [address] PCP - General 05/04/18
[2025-06-30 09:55] LABS: Estimated Glomerular Filt Rate 54
== END 2025-06-30 09:20 | disposition home or self-care (01) ==
PROVIDERS: PCP Family Medicine; Visit Provider Family Medicine
DX: R91.8 Other nonspecific abnormal finding of lung field (principal); J98.4 Other disorders of lung; R91.1 Solitary pulmonary nodule
CPT/HCPCS: 71260; Q9967